=== PATIENT | male | born 1945 | race Caucasian/White ===

== ENCOUNTER 2017-02-06 12:35 | Inpatient (IN) | payer OTHER, MEDICARE ==
[~2017-02-06] VITALS: Ht 180.3 cm; Wt 78.8 kg
[~2017-02-06 12:35] MED LIST: CEPH-460 PO; DEXAMETHASONE SOD PHOS 4 MG/ML VIAL IV ONE; EFFE150C PO; GLYCOPYRROLATE 1 MG/5 ML SYRINGE IV PUSH ONE; LACTATED RINGER'S 1000 ML INJ 1,000 ML IV ONE; LEVO25TA4 PO; LIDOCAINE HCL 1% PF 5 ML AMPULE OTHER ONE; LOVA20TA PO; METR-1 PO; MIDAZOLAM HCL 2 MG/2 ML VIAL IV ONE; MORPHINE SULFATE 4 MG/ML INJ IV ONE; NEOM500 PO; NEOSTIGMINE 3 MG/3 ML SYR IV ONE; NORMOSOL R INJ 1,000 ML IV ONE; ONDANSETRON HCL 4 MG/2 ML VIAL IV PUSH ONE; PHENYLEPH/NS 1000 MCG/10 ML SYR IV ONE; PHENYLEPHRINE HCL 10 MG/ML VIAL IV ONE; PROPOFOL 200 MG/20 ML AMP IV ONE; ROCURONIUM INJ 50 MG/5 ML VIAL IV ONE; STERILE WATER FOR INJECTION 20 ML VIAL IV ONE; SUCCINYLCHOLINE CHLORIDE 100 MG/5 ML SYRINGE IV PUSH ONE; VECURONIUM BROMIDE 20 MG VIAL IV ONE; hydrALAZINE HCL 20 MG/ML VIAL IV ONE
[2017-02-06] MEDS ORDERED: POVIDONE IODINE 5% (ANTISEPSIS KIT) 4 APPLICATIONS EACH NARE PRN (13:00)
[2017-02-06] MEDS ORDERED: CHLORHEXIDINE GLUCONATE 2 % 1 PACK (2 CLOTHS) TOPICAL PRN (13:00)
[2017-02-06] MEDS ORDERED: METRONIDAZOLE 500 MG/100 ML ISONTONIC SOLN IV SCH (13:00)
[2017-02-06] MEDS ORDERED: SODIUM CHLORID 0.9% 500 ML IV PRN (13:00)
[2017-02-06] MEDS ORDERED: LACTATED RINGER'S 1000 ML IV PRN (13:00)
[2017-02-06] MEDS ORDERED: METOPROLOL TARTRATE 25 MG TAB PO PRN (13:00)
[2017-02-06] MEDS ORDERED: ceFAZolin 1,000 MG/NS 100 ML IV SCH ×2 (13:00)
[2017-02-06] MEDS ORDERED: DEXT 5%-NACL 0.9% 1000 ML INJ 1,000 ML IV SCH (13:15)
[2017-02-06] MEDS ORDERED: ALVIMOPAN 12 MG CAPSULE PO SCH (13:15)
[2017-02-06 13:36] LABS: AUTOMATED NEUTROPHIL # 3.7 TH/MM3 (1.8-7.7); BASOPHIL # 0.1 TH/MM3 (0-0.2); BASOPHIL % 1.2 % (0.0-2.0); EOSINOPHIL # 0.1 TH/MM3 (0-0.4); EOSINOPHIL % 2.7 % (0.0-4.0); HEMO FLAGS DIFF FINAL; LYMPH % 14.4 % (9.0-44.0); LYMPHOCYTE # 0.8 TH/MM3 (1.0-4.8); MEAN CELL VOLUME 88.2 FL (80.0-100.0); MEAN CORPUSCULAR HEMOGLOBIN 29.8 PG (27.0-34.0); MEAN CORPUSCULAR HGB CONC 33.8 % (32.0-36.0); MONO % 12.8 % (0.0-8.0); NEUT % 68.9 % (16.0-70.0); PLATELET COUNT 319 TH/MM3 (150-450); RED BLOOD COUNT 4.77 MIL/MM3 (4.50-5.90); RED CELL DISTRIBUTION WIDTH 15.3 % (11.6-17.2); WHITE BLOOD COUNT 5.3 TH/MM3 (4.0-11.0)
[2017-02-06 13:42] LABS: ALT (GPT) 22 U/L (12-78); ANION GAP 9 MEQ/L (5-15); AST (GOT) 17 U/L (15-37); BICARBONATE 26.9 MEQ/L (21.0-32.0); BLOOD UREA NITROGEN 9 MG/DL (7-18); CHLORIDE 104 MEQ/L (98-107); GLOMERULAR FILTRATION RATE 79 ML/MIN (>89); POTASSIUM 3.7 MEQ/L (3.5-5.1); SODIUM (NA) 140 MEQ/L (136-145)
[2017-02-06 13:44] LABS: APTT (PATIENT) 27.8 SEC (24.3-30.1); INTERNATIONAL NORMALIZED RATIO 1.1 RATIO; PROTHROMBIN TIME - PATIENT 12.1 SEC (9.8-11.6)
[2017-02-06 13:45] LABS: ALKALINE PHOSPHATASE 66 U/L (45-117); TOTAL BILIRUBIN ADULT 0.4 MG/DL (0.2-1.0)
[2017-02-06 13:58] LABS: BLOOD, URINE NEG (NEG); COMMENT (UR) CULT NOT INDICATED; CULTURE IF INDICATED CULT NOT INDICATED; GLUCOSE,URINE NEG (NEG); HYALINE CAST, URINE 4 /lpf (RARE); KETONE, URINE 10 mg/dL (NEG); MUCUS URINE FEW /lpf (OCC); NITRITE,URINE NEG (NEG); PH, URINE 5.5 (5.0-8.5)
[2017-02-06 14:00] LABS: URINE COLOR LIGHT-RED (YELLW/STRAW)
--- NOTE | 2017-02-06 14:01 | RADRPT ---
EXAM DATE/TIME: 02/06/2017 13:23 [place] COMPARISON: CHEST SINGLE AP, November 10, 2012, 22:08. INDICATIONS : Evaluate for penumonia, pneumothorax, or communicable disease. Pre op for sigmoid colectomy. MEDICAL HISTORY : Hypercholesterolemia. Osteoarthritis. Colon Abscess.Thyroid disease. Enlarged prostate. SURGICAL HISTORY : Discectomy, cervical. Left knee arthroscopy. ENCOUNTER: Initial ACUITY: 1 day PAIN SCORE: 0/10 LOCATION: chest FINDINGS: Portable AP view of the chest demonstrates a normal-sized cardiac silhouette. No effusion, consolidat ion, or pneumothorax is visualized. The bones and soft tissues demonstrate no acute abnormality. Ther e are degenerative changes of the thoracic spine. CONCLUSION: No acute cardiopulmonary abnormality is identified. Darryl Lambert MD on February 06, 2017 at 13:59 Board Certified Radiologist. This report was verified electronically.
[2017-02-06] MEDS ORDERED: SUGAMMADEX SODIUM 200 MG/2 ML VIAL IV PUSH ONE ×2 (16:07)
[2017-02-06] MEDS ORDERED: ACETAMINOPHEN 1000 MG/100 ML 100 ML IV ONE (16:29)
[2017-02-06] MEDS ORDERED: DO NOT ADM ANY ANTICOAGULANT DRUGS PRN (19:15)
[2017-02-06] MEDS ORDERED: ONDANSETRON HCL 4 MG/2 ML VIAL ONE (19:30)
[2017-02-06] MEDS ORDERED: ZOLPIDEM TARTRATE 5 MG TAB PO PRN (19:30)
[2017-02-06] MEDS ORDERED: *morphine SULFATE 8 MG/ML PERIprocedure ONLY ONE ×3 (19:30→19:55)
[2017-02-06] MEDS ORDERED: SODIUM CHLORIDE 0.9% FLUSH 10 ML FLUSH IV FLUSH PRN ×2 (19:30→19:45)
[2017-02-06] MEDS ORDERED: ENALAPRILAT 1.25 MG/ML VIAL IV PUSH PRN (19:30)
[2017-02-06] MEDS ORDERED: NALOXONE HCL 0.4 MG/ML AMP IV PUSH PRN (19:30)
[2017-02-06] MEDS ORDERED: POTASSIUM CHLOR 40 MEQ PREMIX 100 ML IV PRN ×2 (19:30→19:45)
[2017-02-06] MEDS ORDERED: Post-op Orders (for Pharmacy) MISC XX ONE (19:30)
[2017-02-06] MEDS ORDERED: ONDANSETRON HCL 4 MG/2 ML VIAL IV PUSH PRN (19:30)
[2017-02-06] MEDS ORDERED: BENZOCAINE 6 MG/MENTHOL 10 MG LOZENGE BUCCAL PRN (19:30)
[2017-02-06] MEDS ORDERED: POTASSIUM CHLOR 20 MEQ PREMIX 100 ML IV PRN ×2 (19:30→19:45)
[2017-02-06] MEDS ORDERED: MORPHINE SULFATE 30 MG/30 ML PCA IV SCH (19:30)
[2017-02-06] MEDS: D5-LR + KCL 20 MEQ INJ 1,000 ML IV SCH ×2 (19:52→23:43)
[2017-02-06] MEDS ORDERED: *HYDROmorphone PF 1 MG VIAL PERIprocedural Use ONLY ONE (20:10)
[2017-02-06 20:18] LABS: AUTOMATED NEUTROPHIL # 4.1 TH/MM3 (1.8-7.7); BASOPHIL % 0.8 % (0.0-2.0); EOSINOPHIL % 0.1 % (0.0-4.0); HEMATOCRIT 40.6 % (39.0-51.0); HEMO FLAGS DIFF FINAL; LYMPH % 9.4 % (9.0-44.0); LYMPHOCYTE # 0.5 TH/MM3 (1.0-4.8); MEAN CELL VOLUME 87.5 FL (80.0-100.0); MEAN CORPUSCULAR HGB CONC 33.1 % (32.0-36.0); MONO % 4.9 % (0.0-8.0); NEUT % 84.8 % (16.0-70.0); PLATELET COUNT 309 TH/MM3 (150-450); RED BLOOD COUNT 4.63 MIL/MM3 (4.50-5.90); RED CELL DISTRIBUTION WIDTH 15.1 % (11.6-17.2); WHITE BLOOD COUNT 4.8 TH/MM3 (4.0-11.0)
[2017-02-06] MEDS: FUROSEMIDE 20 MG/2 ML VIAL IV PUSH SCH (20:43)
[2017-02-06] MEDS: KETOROLAC TROMETHAMINE 30 MG/ML (IVP) VIAL IVP PRN (20:53)
[2017-02-06] MEDS ORDERED: SODIUM CHLORIDE 0.9% FLUSH 10 ML FLUSH IV FLUSH SCH (21:00)
[2017-02-06 21:07] LABS: BICARBONATE 23.9 MEQ/L (21.0-32.0); POTASSIUM 3.6 MEQ/L (3.5-5.1)
[2017-02-06 21:29] LABS: CALCIUM-PROTEIN CORRECTED 7.7 MG/DL (8.5-10.1)
[2017-02-06 22:00] VITALS: BP 172/70; PULSE 67; PULSE 73; RESP 14; TEMP 98.1; O2SAT 94
[2017-02-06] MEDS ORDERED: PCA - TOTAL MG MORPHINE DELIVERED PER SHIFT SCH (22:00)
[2017-02-06 23:00] VITALS: PULSE 60
[2017-02-07] VITALS (18 sets, daily range): BP systolic 92–154; BP diastolic 49–68; PULSE 55–99; RESP 14–18; TEMP 98.1–100; O2SAT 92–98
[2017-02-07] MEDS ORDERED: NALOXONE HCL 0.4 MG/ML AMP IV PUSH PRN (00:30)
[2017-02-07] MEDS: HYDROmorphone HCL PCA 6 MG/30 ML IV SCH ×4 (01:29→23:46)
[2017-02-07] MEDS: METOCLOPRAMIDE HCL 10 MG/2 ML VIAL IVS SCH ×4 (01:46→18:36)
[2017-02-07] MEDS: SODIUM CHLORIDE 0.9% FLUSH 10 ML FLUSH IV FLUSH SCH ×3 (01:47→21:07)
[2017-02-07] MEDS: metroNIDAZOLE 500 MG INJ 100 ML IV SCH ×3 (01:57→16:15)
[2017-02-07 04:34] LABS: BASOPHIL % 0.2 % (0.0-2.0); HEMATOCRIT 42.2 % (39.0-51.0); HEMO FLAGS DIFF FINAL; LYMPH % 1.7 % (9.0-44.0); LYMPHOCYTE # 0.2 TH/MM3 (1.0-4.8); MEAN CELL VOLUME 88.4 FL (80.0-100.0); MEAN CORPUSCULAR HEMOGLOBIN 29.1 PG (27.0-34.0); MEAN CORPUSCULAR HGB CONC 32.9 % (32.0-36.0); MONO % 6.1 % (0.0-8.0); PLATELET COUNT 297 TH/MM3 (150-450); RED BLOOD COUNT 4.77 MIL/MM3 (4.50-5.90); RED CELL DISTRIBUTION WIDTH 15.1 % (11.6-17.2); WHITE BLOOD COUNT 9.8 TH/MM3 (4.0-11.0)
[2017-02-07 05:24] LABS: POTASSIUM 4.5 MEQ/L (3.5-5.1)
[2017-02-07 05:41] LABS: CALCIUM-PROTEIN CORRECTED 7.7 MG/DL (8.5-10.1)
[2017-02-07] MEDS: PCA - TOTAL MG DILAUDID DELIVERED PER SHIFT SCH ×3 (06:00→22:15)
[2017-02-07] MEDS: LEVOTHYROXINE SODIUM 25 MCG TAB PO SCH (06:40)
[2017-02-07] MEDS: PRAVASTATIN SOD 20 MG TAB PO SCH (08:55)
[2017-02-07] MEDS: VENLAFAXINE HCL XR 75 MG CAP PO SCH (08:55)
[2017-02-07] MEDS: FUROSEMIDE 20 MG/2 ML VIAL IV PUSH SCH ×2 (08:55→21:07)
[2017-02-07] MEDS: PANTOPRAZOLE SODIUM 40 MG VIAL IVP SCH (08:55)
[2017-02-07] MEDS: ALVIMOPAN 12 MG CAPSULE PO SCH ×2 (08:55→21:07)
[2017-02-07] MEDS: ALVIMOPAN 12 MG CAPSULE - Post-op dosing PO SCH ×2 (08:56→21:00)
--- NOTE | 2017-02-07 10:52 | MP ---
cc: MACKENZIE JARQUIN M.D., JOHN T. M.D. DATE OF SURGERY: 02/06/2017 PREOPERATIVE DIAGNOSIS Diverticulitis with colocutaneous fistula. POSTOPERATIVE DIAGNOSIS Diverticulitis with colocutaneous fistula. PROCEDURE 1. Sigmoid colectomy, low anterior resection. 2. Diverting loop ileostomy. 3. Placement of bilateral ureteral catheters by Dr. Marvin Post. SURGEON Dr. Prieto. AUTOMATIC PINSETTER MECHANIC SURGEON Dr. Simms. ANESTHESIA General endotracheal. OPERATING TIME Two hours. INDICATIONS This patient was found to have diverticulitis about one month ago. He was seen and underwent a CT scan of the abdomen which showed a 3 x 5 cm pericolonic abscess around the sigmoid colon. He saw me several days later and I sent him to the hospital for drainage of this peridiverticular abscess. He did well without drainage and about a week later had a repeat CAT scan which showed no abscess cavity and it appeared to be resolving diverticulitis. He was still on antibiotics and his drainage catheter was removed. Several days later he began having pus draining out of the drainage catheter site and a repeat CT scan showed a recurrent pericolonic abscess. He again underwent CT-guided drainage, however, that drainage catheter fell out because it was not sutured in place. He then was admitted to the hospital for two days and underwent repeat drainage and has had the drainage catheter in, essentially off and on for one month. Since that time he has continued to drain from the drainage catheter liquid fecal material each day without any improvement. The last CT scan done last week showed that there was still a collection around the colon and the sigmoid colon was densely adherent to the posterior wall of the bladder. For this reason resection plans were made. I went over all the possibilities with the patient at that time. Also, we may plans for bilateral ureteral catheters for easy identification of the ureters. OPERATIVE FINDINGS At surgery, exploration of the abdominal cavity revealed that the liver and the small bowel and the colon were all palpably normal. He had a large peridiverticular mass firmly adherent to the back wall of the bladder and Dr. Post placed bilateral ureteral catheters. We are able to dissect this mass free and there was a peridiverticular abscess approximately 2 inches x 2 inches in diameter full of leaves and vegetable matter. This was all removed and the sigmoid colon was subsequently mobilized and resected, and a primary anastomosis was done. A diverting loop ileostomy was done because of the amount of inflammation in the pelvis. OPERATIVE TECHNIQUE The patient was placed on the table in the supine position. After adequate general endotracheal anesthesia the legs were placed in the perineal lithotomy position and the abdomen and perineum were prepped and draped in the usual manner. A transverse infraumbilical skin incision was made, carried down through subcutaneous tissue and the rectus muscles and the peritoneal cavity entered with the above-mentioned findings. Our attention was turned to the sigmoid colon and the peridiverticular abscess. The drainage catheter had been removed just before surgery. The process was dissected off the posterior wall of the bladder after Dr. Post placed by bilateral ureteral catheters. There was a large abscess cavity as mentioned above in the operative findings containing a large amount of vegetable matter. This was all removed and the sigmoid colon was fully from the posterior wall of the bladder. Next, the sigmoid colon, descending colon and splenic flexure were all mobilized as was the transverse colon and the omentum was mobilized from the transverse colon. The lesser sac was entered. The superior hemorrhoidal vessels were doubly clamped, cut and doubly ligated. The lateral pelvic peritoneum was incised bilaterally and the retrorectal space was entered, and the dissection was taken down to the rectum. The mesorectum was divided with electrocautery and clamped, cut and ligated as well. Once the mesorectum was cleared a pursestring stapling device was used on the rectum. Our attention was then turned to the upper sigmoid colon and the sigmoid mesentery was clamped, cut and ligated and the sigmoid was cleared. A pursestring stapling device was used and then the anvil of the 33 Ethicon EEA stapling device was placed in the proximal bowel and the pursestring was tied. Dr. Simms went below and placed the EEA instrument transanally. The distal pursestring was tied, but the bowel appeared slightly thin as if the muscle had split and therefore the rectum was further mobilized inferiorly and cleared and another pursestring was placed. The EEA instrument was replaced and the pursestring was tied and the instrument connected, closed and fired creating the anastomosis. There was no tension on the anastomosis. The blood supply was excellent. Dr. Simms did proctosigmoidoscopy insufflating air into the rectum and saline solution was in the pelvis and no air leaks were identified. The pelvis was irrigated thoroughly with about 4 liters of saline solution and the small bowel was irrigated as well. It should be mentioned that there was a loop of small bowel that was stuck down in this process originally, but it was peeled off without any apparent damage to the bowel, although the bowel was a little bit thickened and firm. Because of the extensive abscess cavity inflammation in the pelvis we decided to do a fully diverting loop ileostomy in the right upper quadrant. The abscess cavity on the back of the bladder was curetted clean and then hemostasis was obtained with electrocautery and Fibrillar patches. Once this was done the omentum was placed in the left colic gutter anterior to the colorectal anastomosis and posterior to the bladder the two. A 10 flat [place] drain was placed in the retrorectal space and brought out through a separate stab wound in the right lower quadrant. A stoma site was made in the right upper quadrant in the rectus muscle. The mesentery of the small bowel for the ileostomy was opened and the distal portion of the small bowel was stapled closed with a TX 30 stapling device and the small bowel was brought out through the previously made stoma site in the right upper quadrant. The bowel was replaced in the abdominal cavity in an facility maintenance manager manner after obtaining hemostasis with electrocautery and ligature. The abdominal incision was closed in layers using double-stranded #1 PDS for the posterior rectus sheath and then the muscle layer was irrigated with a liter of saline solution and the anterior rectus sheath was closed with double-stranded #1 PDS as well. The skin was closed with skin terrell since it was a contaminated case and the subcutaneous tissue was irrigated with a liter of saline solution prior to that. Once I was done the ileostomy was matured forming a 2 cm nipple and a 57 mm appliance was applied. Sponge, needle and instrument counts were reported as correct. Estimated blood loss was 200 cc. Operating time was 2 hours. The patient tolerated the procedure well and left the operating room in good condition. MD MICHELLE Sharma/NEFTALI /8:41 PM /10:26 AM
[2017-02-07] MEDS: D5-LR + KCL 20 MEQ INJ 1,000 ML IV SCH (14:18)
--- NOTE | 2017-02-07 16:52 | PD.WCN.NOT ---
Wound Consult Description: Consult for NEW OSTOMY TEACHING per Dr Prieto Communicated with: Patient and daughter and bedside Patient was sleeping Recommendation: Write down any questions for next meeting on Friday02/10/17 Read [facility] Additional Information: Patient seen on for ostomy assessment and teaching. Ostomy Type: Ileostomy Surgeon: Darryl Prieto MD Date of Surgery: Feb 06, 2017 Complete: Education materials, Other (supplies ordered from [facility]) Educated patient on: Patient was sleeping on and off and waking up in pain and using Dilaudid ASSISTANT TO THE DEAN pump and falling back to sleep again. Most education was given to pt's and daughter at bedside. Additional information Stoma is in the right quadrant of the abdomen with intact appliance and minimal brown stool noted. Stoma is round, red, moist, moderately protruding, measuring 1 3/4". [facility] Feb 07, 2017 16:52
--- NOTE | 2017-02-07 17:58 | HHI.PR ---
Subjective Remarks C/O pain. No N or V now. Just got OOB in chair. Objective Vital Signs Date Time Temp Pulse Resp B/P (MAP) Pulse Ox O2 Delivery O2 Flow Rate FiO2 02/07/17 17:00 90 02/07/17 16:45 16 02/07/17 15:50 89 02/07/17 15:50 100.0 89 18 101/54 (70) 93 02/07/17 15:00 98 02/07/17 14:00 88 02/07/17 14:00 16 02/07/17 13:00 88 02/07/17 12:00 94 02/07/17 11:00 98.8 97 18 92/49 (63) 92 02/07/17 11:00 97 02/07/17 11:00 97 02/07/17 11:00 92 Room Air 02/07/17 10:00 78 02/07/17 09:00 82 02/07/17 08:52 20 02/07/17 08:00 86 02/07/17 08:00 98.2 55 14 112/64 (80) 94 02/07/17 07:00 90 02/07/17 06:00 14 02/07/17 05:30 98.4 55 14 108/60 (76) 94 02/07/17 02:00 80 02/07/17 01:29 16 02/07/17 01:00 64 02/07/17 00:53 98.1 78 14 154/68 (96) 97 02/07/17 00:00 58 02/06/17 23:00 60 02/06/17 22:00 67 02/06/17 22:00 98.1 73 14 172/70 (104) 94 02/06/17 20:45 97.7 86 20 172/72 (105) 97 Nasal Cannula 2 02/06/17 20:30 77 23 169/72 (104) 97 Nasal Cannula 2 02/06/17 20:15 74 17 152/68 (96) 97 Nasal Cannula 2 02/06/17 20:05 16 02/06/17 20:00 74 24 152/67 (95) 97 Nasal Cannula 2 02/06/17 19:45 74 16 153/71 (98) 97 Nasal Cannula 4 02/06/17 19:30 80 20 151/70 (97) 95 Nasal Cannula 4 02/06/17 19:15 97.7 76 20 172/73 (106) 97 Nasal Cannula 4 I/O 02/06/17 02/06/17 02/06/17 02/07/17 02/07/17 02/07/17 07:00 15:00 23:00 07:00 15:00 23:00 Intake Total 4500 ml 414.5 ml Output Total 2110 ml 2425 ml Balance 2390 ml -2010.5 ml Intake Oral 0 ml 10 ml IV Total 1000 ml 404.5 ml Other 3500 ml Output Urine Total 1800 ml 2425 ml Stool Total 0 ml Drainage Total 110 ml Estimated Blood Loss 200 ml Result Diagram: 02/07/17 0429 02/07/17 0429 Objective Remarks VS-S Abd: flat,soft Labs: Ok I&Os: OK Assessment and Plan Assessment and Plan Stable. POD#1 Ureteral cath removed. FLD tomorrow. D/C PATIENT RELATIONS REPRESENTATIVE in Darryl Prieto MD Feb 07, 2017 17:58
--- NOTE | 2017-02-07 18:23 | EKG ---
Date Performed: 02/06/2017 Time Performed: 13:17:17 PTAGE: 71 years EKG: Sinus rhythm NORMAL ECG NO PREVIOUS TRACING DOCTOR: Jamar Vizcarra Interpretating Date/Time 02/07/2017 18:17:16
[2017-02-08] MEDS: METOCLOPRAMIDE HCL 10 MG/2 ML VIAL IVS SCH ×5 (00:04→22:51)
[2017-02-08] MEDS: D5-LR + KCL 20 MEQ INJ 1,000 ML IV SCH ×4 (00:48→19:53)
[2017-02-08 04:36] LABS: BICARBONATE 31.8 MEQ/L (21.0-32.0); POTASSIUM 4.4 MEQ/L (3.5-5.1)
[2017-02-08 04:56] LABS: AUTOMATED NEUTROPHIL # 11.4 TH/MM3 (1.8-7.7); BASOPHIL % 0.2 % (0.0-2.0); HEMATOCRIT 37.3 % (39.0-51.0); HEMO FLAGS DIFF FINAL; LYMPH % 3.9 % (9.0-44.0); LYMPHOCYTE # 0.5 TH/MM3 (1.0-4.8); MEAN CELL VOLUME 89.3 FL (80.0-100.0); MEAN CORPUSCULAR HEMOGLOBIN 29.7 PG (27.0-34.0); MEAN CORPUSCULAR HGB CONC 33.2 % (32.0-36.0); MONO % 9.5 % (0.0-8.0); NEUT % 86.4 % (16.0-70.0); PLATELET COUNT 287 TH/MM3 (150-450); RED BLOOD COUNT 4.17 MIL/MM3 (4.50-5.90); RED CELL DISTRIBUTION WIDTH 15.5 % (11.6-17.2); WHITE BLOOD COUNT 13.2 TH/MM3 (4.0-11.0)
[2017-02-08] MEDS: ACETAMINOPHEN 1000 MG/100 ML 100 ML IV PRN (04:58)
[2017-02-08] MEDS: LEVOTHYROXINE SODIUM 25 MCG TAB PO SCH (04:59)
[2017-02-08 05:04] LABS: CALCIUM-PROTEIN CORRECTED 7.8 MG/DL (8.5-10.1)
[2017-02-08 05:20] VITALS: BP 97/48; PULSE 93; RESP 17; TEMP 98.5; O2SAT 93
[2017-02-08] MEDS: PCA - TOTAL MG DILAUDID DELIVERED PER SHIFT SCH (06:00)
[2017-02-08 08:00] VITALS: BP 111/53; PULSE 82; RESP 17; TEMP 98.2; O2SAT 94
[2017-02-08] MEDS: VENLAFAXINE HCL XR 75 MG CAP PO SCH (08:34)
[2017-02-08] MEDS: PRAVASTATIN SOD 20 MG TAB PO SCH (08:34)
[2017-02-08] MEDS: PANTOPRAZOLE SODIUM 40 MG VIAL IVP SCH (08:34)
[2017-02-08] MEDS: FUROSEMIDE 20 MG/2 ML VIAL IV PUSH SCH ×2 (08:35→19:52)
[2017-02-08] MEDS: SODIUM CHLORIDE 0.9% FLUSH 10 ML FLUSH IV FLUSH SCH ×2 (08:35→19:52)
[2017-02-08] MEDS: ALVIMOPAN 12 MG CAPSULE - Post-op dosing PO SCH (08:40)
[2017-02-08] MEDS: ALVIMOPAN 12 MG CAPSULE PO SCH ×2 (08:43→19:52)
--- NOTE | 2017-02-08 10:23 | HHI.PR ---
Subjective Remarks C/O pain. No N or V now. No BM or flatus Objective Vital Signs Date Time Temp Pulse Resp B/P (MAP) Pulse Ox O2 Delivery O2 Flow Rate FiO2 02/08/17 08:00 98.2 82 17 111/53 (72) 94 02/08/17 08:00 94 Room Air 02/08/17 06:00 16 02/08/17 05:20 98.5 93 17 97/48 (64) 93 02/07/17 23:46 18 02/07/17 23:30 99.2 91 16 108/57 (74) 98 02/07/17 22:15 16 02/07/17 20:15 99.0 99 18 103/58 (73) 93 02/07/17 20:15 93 Room Air 02/07/17 17:00 90 02/07/17 16:45 16 02/07/17 15:50 89 02/07/17 15:50 100.0 89 18 101/54 (70) 93 02/07/17 15:00 98 02/07/17 14:00 88 02/07/17 14:00 16 02/07/17 13:00 88 02/07/17 12:00 94 02/07/17 11:00 98.8 97 18 92/49 (63) 92 02/07/17 11:00 97 02/07/17 11:00 97 02/07/17 11:00 92 Room Air I/O 02/07/17 02/07/17 02/07/17 02/08/17 02/08/17 02/08/17 07:00 15:00 23:00 07:00 15:00 23:00 Intake Total 414.5 ml 1550 ml 720 ml Output Total 2425 ml 850 ml 510 ml Balance -2010.5 ml 700 ml 210 ml Intake Oral 10 ml 50 ml 720 ml IV Total 404.5 ml 1500 ml Output Urine Total 2425 ml 850 ml 500 ml Stool Total 0 ml 0 ml Drainage Total 10 ml Result Diagram: 02/08/1732302/08/17323 Objective Remarks VS-S Abd: flat,soft,wound clean Labs: Ok I&Os: OK Assessment and Plan Assessment and Plan Stable. POD#2 D/C RAG SORTER AND CUTTER. OOB, FLD, Decrease IVs Darryl Prieto MD Feb 08, 2017 10:23
[2017-02-08] MEDS: ACETAMINOPHEN/HYDROcodone 325 MG/5 MG TAB PO PRN ×3 (10:24→22:51)
[2017-02-08] MEDS: KETOROLAC TROMETHAMINE 30 MG/ML (IVP) VIAL IVP PRN ×2 (11:36→18:56)
[2017-02-08 12:00] VITALS: BP 158/70; PULSE 83; RESP 18; TEMP 98.5; O2SAT 94
[2017-02-08 16:00] VITALS: BP 123/64; PULSE 91; RESP 18; TEMP 98.6; O2SAT 94
[2017-02-08 21:30] VITALS: BP 139/71; PULSE 84; RESP 20; TEMP 96.2; O2SAT 95
[2017-02-09] VITALS: BP 151/71; PULSE 99; RESP 18; TEMP 98; O2SAT 93
[2017-02-09] MEDS: ACETAMINOPHEN 1000 MG/100 ML 100 ML IV PRN (02:38)
[2017-02-09] MEDS: KETOROLAC TROMETHAMINE 30 MG/ML (IVP) VIAL IVP PRN ×3 (02:44→17:35)
[2017-02-09] MEDS: ACETAMINOPHEN/HYDROcodone 325 MG/5 MG TAB PO PRN ×4 (02:52→21:13)
[2017-02-09] MEDS: D5-LR + KCL 20 MEQ INJ 1,000 ML IV SCH ×2 (02:57→13:46)
[2017-02-09 05:38] LABS: BICARBONATE 28.7 MEQ/L (21.0-32.0)
[2017-02-09] MEDS: LEVOTHYROXINE SODIUM 25 MCG TAB PO SCH (06:19)
[2017-02-09] MEDS: METOCLOPRAMIDE HCL 10 MG/2 ML VIAL IVS SCH ×4 (06:20→23:55)
[2017-02-09 08:00] VITALS: BP 146/68; PULSE 79; RESP 17; TEMP 96.1; O2SAT 95
[2017-02-09] MEDS: PANTOPRAZOLE SODIUM 40 MG VIAL IVP SCH (08:36)
[2017-02-09] MEDS: FUROSEMIDE 20 MG/2 ML VIAL IV PUSH SCH (08:37)
[2017-02-09] MEDS: ALVIMOPAN 12 MG CAPSULE PO SCH ×2 (08:38→21:13)
[2017-02-09] MEDS: PRAVASTATIN SOD 20 MG TAB PO SCH (08:38)
[2017-02-09] MEDS: SODIUM CHLORIDE 0.9% FLUSH 10 ML FLUSH IV FLUSH SCH ×2 (09:00→21:13)
[2017-02-09 12:00] VITALS: BP 102/56; PULSE 82; RESP 17; TEMP 95.7; O2SAT 96
--- NOTE | 2017-02-09 13:04 | HHI.PR ---
Subjective Remarks Less pain. No N or V . BM yesterday Objective Vital Signs Date Time Temp Pulse Resp B/P (MAP) Pulse Ox O2 Delivery O2 Flow Rate FiO2 02/09/17 12:00 95.7 82 17 102/56 (71) 96 02/09/17 08:00 96.1 79 17 146/68 (94) 95 02/09/17 00:00 98.0 99 18 151/71 (97) 93 02/08/17 21:30 96.2 84 20 139/71 (93) 95 02/08/17 16:00 98.6 91 18 123/64 (83) 94 02/08/17 15:47 18 I/O 02/08/17 02/08/17 02/08/17 02/09/17 02/09/17 02/09/17 07:00 15:00 23:00 07:00 15:00 23:00 Intake Total 720 ml 1440 ml 750 ml Output Total 510 ml 1870 ml 530 ml Balance 210 ml -430 ml 220 ml Intake Oral 720 ml 240 ml IV Total 1200 ml 750 ml Output Urine Total 500 ml 1850 ml 200 ml Stool Total 300 ml Drainage Total 10 ml 20 ml 30 ml Result Diagram: 02/08/17 0324 02/09/17 0435 Objective Remarks VS-S Abd: flat,soft,wound purulent odorous D/C from middle of wound. !0 CM opened with fairly large amount of purulent D/C. Malodorous. Cleaned and packed. Labs: Ok I&Os: OK Assessment and Plan Assessment and Plan Stable. POD#3 Wound packed. I will repack in AM.C&S sent. Started Rocephin. Decrease Darryl Rogers MD Feb 09, 2017 13:04
[2017-02-09] MEDS: VENLAFAXINE HCL XR 75 MG CAP PO SCH (13:45)
[2017-02-09] MEDS: cefTRIAXone INJ 1,000 MG in SODIUM CHLORIDE 0.9% INJ 100 ML IV SCH (13:45)
[2017-02-09 16:00] VITALS: BP 127/59; PULSE 88; RESP 17; TEMP 95.9; O2SAT 95
[2017-02-09 20:00] VITALS: BP 126/59; PULSE 87; RESP 20; TEMP 97.6; O2SAT 94
[2017-02-09] MEDS: diphenhydrAMINE HCL 50 MG CAP PO PRN (23:55)
[2017-02-10] VITALS: BP 146/68; PULSE 88; RESP 20; TEMP 97.8; O2SAT 95
[2017-02-10] MEDS: ACETAMINOPHEN/HYDROcodone 325 MG/5 MG TAB PO PRN ×4 (04:14→18:35)
[2017-02-10] MEDS: METOCLOPRAMIDE HCL 10 MG/2 ML VIAL IVS SCH ×3 (04:15→18:13)
[2017-02-10] MEDS: LEVOTHYROXINE SODIUM 25 MCG TAB PO SCH (04:16)
[2017-02-10 08:00] VITALS: BP 133/73; PULSE 99; RESP 18; TEMP 98.6; O2SAT 94
[2017-02-10] MEDS: PANTOPRAZOLE SODIUM 40 MG VIAL IVP SCH (08:35)
[2017-02-10] MEDS: VENLAFAXINE HCL XR 75 MG CAP PO SCH (08:36)
[2017-02-10] MEDS: PRAVASTATIN SOD 20 MG TAB PO SCH (08:36)
[2017-02-10] MEDS: ALVIMOPAN 12 MG CAPSULE PO SCH ×2 (08:36→20:21)
[2017-02-10] MEDS: SODIUM CHLORIDE 0.9% FLUSH 10 ML FLUSH IV FLUSH SCH ×2 (08:37→20:21)
--- NOTE | 2017-02-10 09:16 | PD.OP ---
Operative Report Date of Surgery: Feb 06, 2017 Preoperative Diagnosis: Diverticulitis with abscess Postoperative Diagnosis: Diverticulitis with abscess Procedure: Cystoscopy with bilateral ureteral catheter placement Anesthesia: SANCHEZ Surgeon: Marvin Post Volunteer Services Supervisor(s): None Resident Surgeon: None Operation and Findings: 71 year-old male with history of diverticulitis who developed an abscess. Patient was scheduled to undergo evacuation of abscess and colectomy by . Request for made for bilateral ureteral catheter placement. Patient was brought to the operating room and placed in the dorsal lithotomy position. He was prepped and draped in usual sterile fashion, received preprocedure antibiotics and general endotracheal tube anesthesia was administered. 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 The left ureteral orifice was identified and a 5 Czech open catheter was inserted into the left ureteral orifice without difficulty. This was repeated on the right side without difficulty. A 16 Czech Donald was then inserted and the catheters were attached to the Donald. The patient tolerated the procedure well. Marvin Post DO Feb 10, 2017 09:16
[2017-02-10 11:40] VITALS: BP 121/67; PULSE 92; RESP 16; TEMP 97.8; O2SAT 93
--- NOTE | 2017-02-10 12:46 | PD.WCN.NOT ---
Wound Consult Description: Consult for NEW OSTOMY TEACHING per Dr Prieto Communicated with: Patient and his at bedside. Patient slept through most of the teaching. Recommendation: Write down any questions for next meeting on Friday02/11/17 @ 10am Practice opening and closing pouch and attaching practice wafer to plastic stoma in kit. Additional Information: Patient seen on [address] [place] [address] for ostomy assessment and teaching. Ostomy Type: Ileostomy Surgeon: Darryl Prieto MD Date of Surgery: Feb 06, 2017 Complete: Education materials, Other (2 more supplies ordered from [facility] for patient to go home with at discharge. ) Educated patient on: How often to change wafer and pouch How to shower with wafer/pouch in place or removed How to obtain supplies with script given at discharge (home health to follow up) Peristomal skin care Measuring stoma for proper appliance size Opening and closing pouch Emptying pouch every 3-4 hours and PRN Additional information Patient seen on [address] [place] [address] for Ostomy assessment and teaching. Patient at bedside for demonstration of previous documentation. Stoma noted to right side abdomen is red, round, moist, moderately protruding, lumen noted to center and 9 o'clock functioning with dark green effluent noted coming from lumen. Wafer is intact with clear transparent tape removed from around edges of wafer. Pouch was emptied of ~100ml by advertising copy writer and left in bathroom for I&O's. Most of education was given to patient who had questions that were answered at this time. We made arrangements for a meeting tomorrow morning on 02/11/17 at 1000 for changing of appliance, with skin care, and further teaching. Fanny Cantu [facility] Feb 10, 2017 12:46
[2017-02-10] MEDS: cefTRIAXone INJ 1,000 MG in SODIUM CHLORIDE 0.9% INJ 100 ML IV SCH (14:38)
[2017-02-10 16:00] VITALS: BP 159/68; PULSE 99; RESP 18; TEMP 97.1; O2SAT 95
[2017-02-10] MEDS: D5-LR + KCL 20 MEQ INJ 1,000 ML IV SCH (18:13)
[2017-02-10 20:00] VITALS: BP 156/74; PULSE 89; RESP 17; TEMP 98.4; O2SAT 94
[2017-02-11] VITALS: BP 144/73; PULSE 91; RESP 18; TEMP 98.1; O2SAT 95
[2017-02-11] MEDS: METOCLOPRAMIDE HCL 10 MG/2 ML VIAL IVS SCH ×3 (01:43→12:51)
[2017-02-11] MEDS: LEVOTHYROXINE SODIUM 25 MCG TAB PO SCH (04:47)
[2017-02-11] MEDS: ACETAMINOPHEN/HYDROcodone 325 MG/5 MG TAB PO PRN ×2 (04:47→19:26)
[2017-02-11 07:27] LABS: AUTOMATED NEUTROPHIL # 9.6 TH/MM3 (1.8-7.7); BASOPHIL % 0.4 % (0.0-2.0); EOSINOPHIL # 0.2 TH/MM3 (0-0.4); EOSINOPHIL % 2.2 % (0.0-4.0); HEMATOCRIT 32.2 % (39.0-51.0); HEMO FLAGS DIFF FINAL; LYMPH % 5.3 % (9.0-44.0); LYMPHOCYTE # 0.6 TH/MM3 (1.0-4.8); MEAN CORPUSCULAR HEMOGLOBIN 29.3 PG (27.0-34.0); MEAN CORPUSCULAR HGB CONC 33.3 % (32.0-36.0); MONO % 7.6 % (0.0-8.0); NEUT % 84.5 % (16.0-70.0); PLATELET COUNT 286 TH/MM3 (150-450); RED BLOOD COUNT 3.66 MIL/MM3 (4.50-5.90); RED CELL DISTRIBUTION WIDTH 15.3 % (11.6-17.2); WHITE BLOOD COUNT 11.4 TH/MM3 (4.0-11.0)
[2017-02-11 07:42] VITALS: BP 142/67; PULSE 85; RESP 18; TEMP 96.9; O2SAT 97
[2017-02-11] MEDS: VENLAFAXINE HCL XR 75 MG CAP PO SCH (08:19)
[2017-02-11] MEDS: ALVIMOPAN 12 MG CAPSULE PO SCH ×2 (08:19→20:27)
[2017-02-11] MEDS: PRAVASTATIN SOD 20 MG TAB PO SCH (08:20)
[2017-02-11] MEDS: SODIUM CHLORIDE 0.9% FLUSH 10 ML FLUSH IV FLUSH SCH ×2 (08:20→20:27)
[2017-02-11] MEDS: PANTOPRAZOLE SODIUM 40 MG VIAL IVP SCH (08:20)
[2017-02-11 12:00] VITALS: BP 155/80; PULSE 85; RESP 16; TEMP 97.7; O2SAT 96
[2017-02-11] MEDS: cefTRIAXone INJ 1,000 MG in SODIUM CHLORIDE 0.9% INJ 100 ML IV SCH (12:54)
--- NOTE | 2017-02-11 13:43 | PD.WCN.NOT ---
Wound Consult Description: Consult for NEW OSTOMY TEACHING per Dr Prieto Communicated with: Patient Patient at bedside Recommendation: Write down any questions for next meeting on Friday02/12/17 Additional Information: Patient seen on for Ostomy assessment, appliance change, and Ostomy teaching Ostomy Type: Ileostomy Surgeon: Darryl Prieto MD Date of Surgery: Feb 06, 2017 Complete: Starter kit (Verbal consent obtained for [facility] starter kit to be sent to patient home ), Education materials, Other (4 more supplies ordered from [facility] for patient to go home with at discharge. ) Educated patient on: Stoma appearance Peristomal skin care Changing the appliance Additional information Patient seen earlier this am on for Ostomy assessment and teaching. Patient was lying in bed upon arrival with BEATRIZ Mckinney and SHRAVAN Marquez at bedside performing lower transverse abdominal dressing change. Education was given to the patient and the patients at bedside as described above. Later during this visit after the dressing change of the lower abd was completed, patient wanted to get up to the chair and during the teaching we decided to go ahead and change the barrier and pouch. Using adhesive removal wipes the patient and filing writer began removing the barrier from the patients lower right side abdomen. The back side of the barrier was inspected for breakdown and noted that it had done so evenly which is expected. The peristomal skin was cleansed using NS and washcloths and noted to be unremarkable. The stoma measured 1 1/4" therefore an appliance in size 2 1/4" was obtained and used. The ileostomy is red, round, moist, moderately protruding, functioning with dark green liquid noted coming from lumen in center of stoma. Mucocutaneous junction is noted with circumferential sutures and otherwise unremarkable. [facility] Cantu [facility] Feb 11, 2017 13:43
--- NOTE | 2017-02-11 14:01 | HHI.FF ---
Face to Face Verification Diagnosis: (1) Ileostomy in place (2) Diverticulitis large intestine (3) Wound infection after surgery (4) Status post partial resection of colon Home Health Nursing Order: Medical education Wound care and dressing changes Nursing assessment with vital signs Instructions: 1. Pt needs Ileostomy teaching and supplies 2. Wet to dry dressing changes BID. Middle of wound and both corners. Have pt stand or sit in shower. Let shower run on wound before each change to wash debris from wound I have seen patient Gurpreet Willson on 02/11/17. My clinical findings support the need for the requested home health care services because: Ltd mobility - disease progression Deconditioned w/ increased weakness Limited ability to care for self Need for psychosocial assistance Impaired cognition/judgement High risk of falls I certify that my clinical findings support that this patient is homebound because: Post-op weakness Unsteady gait/balance Unsafe to leave home unassisted Unable to use public transportation Darryl Prieto MD Feb 11, 2017 14:01
--- NOTE | 2017-02-11 14:05 | HHI.PR ---
Subjective Remarks Less pain. No N or V . BM yesterday. Dressing changed at 10 AM this AM. Instructed to change each shift. D/W Alma yesterday and Faye today Objective Vital Signs Date Time Temp Pulse Resp B/P (MAP) Pulse Ox O2 Delivery O2 Flow Rate FiO2 02/11/17 07:42 96.9 85 18 142/67 (92) 97 02/11/17 00:00 98.1 91 18 144/73 (96) 95 02/10/17 20:30 Nasal Cannula 02/10/17 20:00 98.4 89 17 156/74 (101) 94 02/10/17 16:00 97.1 99 18 159/68 (98) 95 I/O 02/10/17 02/10/17 02/10/17 02/11/17 02/11/17 02/11/17 07:00 15:00 23:00 07:00 15:00 23:00 Intake Total 450 ml 460 ml Output Total 1660 ml 390 ml 1900 ml Balance -1210 ml -390 ml 460 ml -1900 ml Intake Oral 360 ml IV Total 450 ml 100 ml Output Urine Total 1300 ml 100 ml 1500 ml Stool Total 200 ml 200 ml 300 ml Drainage Total 160 ml 90 ml 100 ml # Voids 3 Result Diagram: 02/11/17 0647 02/09/17 0435 Objective Remarks VS-S Abd: flat,soft,wound just redressed this AM. Dressing dry Labs: Ok I&Os: OK Assessment and Plan Assessment and Plan Stable. POD#5 Dressing change 3 times daily D/C drain in AM D/C tomorrow with [facility] for stoma and wound Darryl Prieto MD Feb 11, 2017 14:05
[2017-02-11 15:36] VITALS: BP 147/70; PULSE 91; RESP 16; TEMP 96.6; O2SAT 97
[2017-02-11 20:00] VITALS: BP 173/79; PULSE 89; RESP 18; TEMP 96.3; O2SAT 94
[2017-02-11] MEDS: D5-LR + KCL 20 MEQ INJ 1,000 ML IV SCH (20:28)
[2017-02-12] VITALS: BP 148/72; PULSE 87; RESP 17; TEMP 97; O2SAT 94
[2017-02-12] MEDS: ACETAMINOPHEN/HYDROcodone 325 MG/5 MG TAB PO PRN ×4 (04:47→22:37)
[2017-02-12] MEDS: LEVOTHYROXINE SODIUM 25 MCG TAB PO SCH (04:47)
[2017-02-12 08:00] VITALS: BP 185/78; PULSE 85; RESP 16; TEMP 97; O2SAT 95
--- NOTE | 2017-02-12 09:38 | HHI.FF ---
Face to Face Verification Diagnosis: (1) Ileostomy in place (2) Diverticulitis large intestine (3) Wound infection after surgery (4) Status post partial resection of colon Physical Therapy Order: Evaluate and Treat, Improve ambulation, Strength and gait training Home Health Nursing Order: Medical education Signs/symptoms of disease process Wound care and dressing changes I have seen patient Gurpreet Willson on 02/12/17. My clinical findings support the need for the requested home health care services because: Ltd mobility - disease progression Deconditioned w/ increased weakness Limited ability to care for self Need for psychosocial assistance High risk of falls Infection w/ risk of complications I certify that my clinical findings support that this patient is homebound because: Post-op weakness Unsteady gait/balance Unsafe to leave home unassisted Need for psychosocial assistance Unable to use public transportation Darryl Prieto MD Feb 12, 2017 09:38
--- NOTE | 2017-02-12 09:43 | HHI.PR ---
Subjective Remarks Less pain. No N or V . Remains weak. May need NHP Objective Vital Signs Date Time Temp Pulse Resp B/P (MAP) Pulse Ox O2 Delivery O2 Flow Rate FiO2 02/12/17 08:00 97.0 85 16 185/78 (113) 95 02/12/17 00:00 97.0 87 17 148/72 (97) 94 02/11/17 20:00 96.3 89 18 173/79 (110) 94 02/11/17 15:36 96.6 91 16 147/70 (95) 97 02/11/17 12:00 97.7 85 16 155/80 (105) 96 I/O 02/11/17 02/11/17 02/11/17 02/12/17 02/12/17 02/12/17 07:00 15:00 23:00 07:00 15:00 23:00 Intake Total 480 ml Output Total 1900 ml 330 ml 380 ml Balance -1900 ml 150 ml -380 ml Intake Oral 480 ml Output Urine Total 1500 ml 350 ml Stool Total 300 ml 300 ml Drainage Total 100 ml 30 ml 30 ml # Voids 5 3 Result Diagram: 02/11/17 0647 02/09/17 0435 Objective Remarks VS-S Abd: flat,soft,wound just redressed by me this AM. Labs: Ok I&Os: OK Assessment and Plan Assessment and Plan Stable. POD#6 Dressing change 3 times daily. Shower wound at least once daily D/C'd drain D/C tomorrow with HHC or NHP for stoma and wound and weakness Darryl Preito MD Feb 12, 2017 09:43
[2017-02-12] MEDS: VENLAFAXINE HCL XR 75 MG CAP PO SCH (09:44)
[2017-02-12] MEDS: PRAVASTATIN SOD 20 MG TAB PO SCH (09:44)
[2017-02-12] MEDS: ALVIMOPAN 12 MG CAPSULE PO SCH ×2 (09:44→20:08)
[2017-02-12] MEDS: SODIUM CHLORIDE 0.9% FLUSH 10 ML FLUSH IV FLUSH SCH ×2 (09:45→20:08)
[2017-02-12] MEDS: D5-LR + KCL 20 MEQ INJ 1,000 ML IV SCH (10:00)
[2017-02-12 12:00] VITALS: BP 134/66; PULSE 83; RESP 17; TEMP 97.7; O2SAT 97
--- NOTE | 2017-02-12 14:09 | PD.WCN.NOT ---
Wound Consult Description: Consult for NEW OSTOMY TEACHING per Dr Prieto Communicated with: Patient Patient at bedside Recommendation: Write down any questions for next meeting on 02/13/17 Additional Information: Patient seen earlier today for Ostomy assessment and teaching. Ostomy Type: Ileostomy Surgeon: Darryl Prieto MD Date of Surgery: Feb 06, 2017 Complete: Starter kit ([facility] sent starter kit to patient home with appliances in size 1 3/4"moldable with open ended beige pouch and filter.), Education materials, Rx (left on chart), Other Educated patient on: Emptying pouch of effluent Releasing air from top where the pouch meets the wafer at the flange Additional information Patient seen on for Ostomy assessment of lower right side ileostomy. Pouch is intact without leaks. Patient states that she spoke with Dr Prieto regarding the outer edges of the wafer and report writer was given the go ahead to cover staple line with the appliance with the next wafer/pouch change. Stoma is red, round, moist, moderately protruding with effluent noted coming from lumen noted at center and 7 o'clock. There is ~75ml of dark green liquid noted to pouch that was emptied by report writer and the patient demonstrating how he can open and close the pouch. A new graduate was given to the patient to take home for measurements of output. Patient was assisted out of bed and using his walker he was able to ambulate to the bathroom where he used an electric shaver to groom himself. Discussion took place with patient regarding rehab vs home with home health care. Patient stated that she would not be able to help him with the wound packing dressing changes and was extremely nervous about the stoma and the appliance changes. She has steps written down for how to change the ostomy wafer, including skin care, and what to do in case of skin breakdown. Patient is being sent home with supplies in both the 2 1/4" and the 1 3/4" for when the stoma decreases in size over the next few weeks. All questions were answered regarding the ileostomy, diet, exercise, and fluids. Fanny Cantu [facility] Feb 12, 2017 14:09
[2017-02-12 16:00] VITALS: BP 139/69; PULSE 78; RESP 18; TEMP 98.3; O2SAT 98
[2017-02-12] MEDS: cefTRIAXone INJ 1,000 MG in SODIUM CHLORIDE 0.9% INJ 100 ML IV SCH (16:45)
[2017-02-12 20:00] VITALS: BP 157/74; PULSE 90; RESP 18; TEMP 96.5; O2SAT 97
[2017-02-12] MEDS: diphenhydrAMINE HCL 50 MG CAP PO PRN (22:44)
[2017-02-13] VITALS: BP 157/75; PULSE 82; RESP 18; TEMP 96.7; O2SAT 95
[2017-02-13] MEDS: D5-LR + KCL 20 MEQ INJ 1,000 ML IV SCH ×2 (05:44→21:50)
[2017-02-13] MEDS: LEVOTHYROXINE SODIUM 25 MCG TAB PO SCH (05:47)
[2017-02-13 08:00] VITALS: BP 162/74; PULSE 86; RESP 17; TEMP 96.7; O2SAT 96
[2017-02-13] MEDS: VENLAFAXINE HCL XR 75 MG CAP PO SCH (08:16)
[2017-02-13] MEDS: PRAVASTATIN SOD 20 MG TAB PO SCH (08:16)
[2017-02-13] MEDS: ACETAMINOPHEN/HYDROcodone 325 MG/5 MG TAB PO PRN ×2 (08:16→18:40)
[2017-02-13] MEDS: SODIUM CHLORIDE 0.9% FLUSH 10 ML FLUSH IV FLUSH SCH ×2 (08:17→21:48)
[2017-02-13 08:48] LABS: AUTOMATED NEUTROPHIL # 7.5 TH/MM3 (1.8-7.7); BASOPHIL # 0.1 TH/MM3 (0-0.2); BASOPHIL % 0.5 % (0.0-2.0); EOSINOPHIL # 0.3 TH/MM3 (0-0.4); EOSINOPHIL % 3.5 % (0.0-4.0); HEMATOCRIT 32.7 % (39.0-51.0); HEMO FLAGS DIFF FINAL; LYMPH % 8.9 % (9.0-44.0); LYMPHOCYTE # 0.9 TH/MM3 (1.0-4.8); MEAN CORPUSCULAR HGB CONC 33.3 % (32.0-36.0); MONO % 9.2 % (0.0-8.0); NEUT % 77.9 % (16.0-70.0); PLATELET COUNT 441 TH/MM3 (150-450); RED BLOOD COUNT 3.76 MIL/MM3 (4.50-5.90); RED CELL DISTRIBUTION WIDTH 15.4 % (11.6-17.2); WHITE BLOOD COUNT 9.6 TH/MM3 (4.0-11.0)
[2017-02-13 09:22] LABS: POTASSIUM 3.6 MEQ/L (3.5-5.1)
[2017-02-13 10:03] LABS: BICARBONATE 23.8 MEQ/L (21.0-32.0)
[2017-02-13 12:00] VITALS: BP 133/64; PULSE 79; RESP 17; TEMP 97.8; O2SAT 96
[2017-02-13] MEDS: ALVIMOPAN 12 MG CAPSULE PO SCH ×2 (12:28→21:44)
[2017-02-13] MEDS: cefTRIAXone INJ 1,000 MG in SODIUM CHLORIDE 0.9% INJ 100 ML IV SCH (12:31)
--- NOTE | 2017-02-13 14:21 | PD.WCN.NOT ---
Wound Consult Description: Consult for NEW OSTOMY TEACHING per Dr Prieto Communicated with: Patient Patient at bedside Recommendation: Empty pouch of effluent when 1/3-1/2 full and before bedtime Change appliance every 3-5 days and PRN before leaks occur Additional Information: Patient seen on [address] [place] [address] for Ostomy assessment and teaching Ostomy Type: Ileostomy Surgeon: Darryl Prieto MD Date of Surgery: Feb 06, 2017 Complete: Starter kit ([facility] sent starter kit to patient home with appliances in size 1 3/4"moldable with open ended beige pouch and filter.), Education materials ([facility] box of educational materials regarding surgery, diet, and the me+ support program ), Rx (left on chart), Other Educated patient on: Living with an ileostomy Additional information Patient seen on [address] [place] [address] for Ostomy assessment and reinforcement of ostomy/skin care. Wafer is intact over ileostomy noted to right side abdomen. Pouch was emptied of 150ml of soft thick mushy brown effluent. Stoma is red, round, moist , moderately protruding, functioning through lumen noted in center of stoma. Plans are to change appliance prior to discharge using 2 1/4" wafer Fanny Cantu [facility] Feb 13, 2017 14:20
[2017-02-13 16:00] VITALS: BP 136/68; PULSE 88; RESP 17; TEMP 97.8; O2SAT 95
--- NOTE | 2017-02-13 17:50 | HHI.PR ---
Subjective . Dressing changed by me. Will try D/C tomorrow if HHC and home PT is in place Objective . Abd: wound irrigated and re packed. Assessment/Plan . Stable Probable D/C in AM Darryl Prieto MD Feb 13, 2017 17:50
[2017-02-13 20:00] VITALS: BP 137/66; PULSE 76; RESP 18; TEMP 97.4; O2SAT 96
[2017-02-13] MEDS: diphenhydrAMINE HCL 50 MG CAP PO PRN (21:44)
[2017-02-14] VITALS: BP 161/74; PULSE 72; RESP 18; TEMP 97.3; O2SAT 96
[2017-02-14] MEDS: ACETAMINOPHEN/HYDROcodone 325 MG/5 MG TAB PO PRN (04:47)
[2017-02-14] MEDS: LEVOTHYROXINE SODIUM 25 MCG TAB PO SCH (04:48)
[2017-02-14 08:00] VITALS: BP 136/75; PULSE 74; RESP 18; TEMP 96.6; O2SAT 97
--- NOTE | 2017-02-14 08:13 | HHI.PR ---
Subjective . Pt for D/C today. Needs [facility] nurse for dressing change everyday for at least 1-2 weeks. Face to face done. I will see next Friday or Friday in office Darryl Prieto MD Feb 14, 2017 08:13
[2017-02-14] MEDS ORDERED: INFLUENZA VIRUS VACCINE (QUADRIVALENT) 0.5 ML SYR IM ONE (09:00)
[2017-02-14] MEDS: VENLAFAXINE HCL XR 75 MG CAP PO SCH (09:33)
[2017-02-14] MEDS: PRAVASTATIN SOD 20 MG TAB PO SCH (09:33)
[2017-02-14] MEDS: SODIUM CHLORIDE 0.9% FLUSH 10 ML FLUSH IV FLUSH SCH (09:34)
[2017-02-14 12:00] VITALS: BP 133/64; PULSE 91; RESP 16; TEMP 97.2; O2SAT 97
--- NOTE | 2017-02-14 14:49 | PD.WCN.NOT ---
Wound Consult Description: Consult for NEW OSTOMY TEACHING per Dr Prieto Communicated with: Patient Patient at bedside Recommendation: Empty pouch of effluent when 1/3-1/2 full, before bedtime, and first thing when you wake up Change appliance every 3-5 days and PRN before leaks occur Additional Information: Patient seen on for Ostomy appliance change prior to discharge. Ostomy Type: Ileostomy Surgeon: Darryl Prieto MD Date of Surgery: Feb 06, 2017 Complete: Starter kit ([facility] sent starter kit to patient home with appliances in size 1 3/4"moldable with open ended beige pouch and filter.), Education materials ([facility] box of educational materials regarding surgery, diet, and the me+ support program ), Rx (left on chart), Other ( changed appliance with minimal instruction) Educated patient on: Stoma size Stoma color and function Removing barrier with adhesive removal wipes Assessing back side of wafer Assessing peristomal skin for breakdown Measuring stoma for correct use of appliance Warming barrier prior to application by placing under arm or thigh with plastic still in place Applying barrier to abdomen and then applying closed pouch to barrier Emptying pouch when 1/3- 1/2 full, before bedtime, and first thing in the morning Setting alarm for mid way through the night to check on appliance for air and stool Using resources available for trouble shooting and any questions they may have regarding stoma/peristomal skin care Additional information Patient seen on [place] this am prior to discharge for assistance with appliance change. Patient demonstrated the removal and application of the appliance with minimal instruction. Supplies (Dimple seals, stoma paste, stoma powder, along with Cavilon spray and adhesive removal wipes) were given to patient to go home with and instructions were given on how to use them. Stoma measured 1 1/4" red, round, moist, moderately protruding, lumen noted 6 o'clock with green effluent in pouch that was emptied by patient . Appliance in size 2 1/4" was available and used for wafer change. Patient is going home with a script for appliances in size 1 3/4" for when stoma shrinks and the sutures have dissolved. Fanny Cantu [facility] Feb 14, 2017 14:49
--- NOTE | 2017-02-18 21:10 | MD ---
cc: MACKENZIE JARQUIN M.D., JOHN T. MD ADMISSION DATE: 02/06/2017 DISCHARGE DATE: 02/14/2017 ADMISSION DIAGNOSIS Sigmoid diverticulitis with colocutaneous fistula. DISCHARGE DIAGNOSIS 1. Sigmoid diverticulitis with colocutaneous fistula 2. Postoperative subcutaneous wound infection. OPERATIVE PROCEDURE 02/06/2017 1. Sigmoid colectomy low anterior resection with diverting loop ileostomy 2. Placement of bilateral ureteral catheters by Dr. Marvin Post HISTORY This patient was found to have diverticulitis about a month prior to this admission. He was seen and underwent CT scan of the abdomen which showed a 3 x 5 cm pericolonic abscess around the sigmoid colon. He saw me several days later and I sent him to the hospital for drainage of this severiano-diverticular abscess because he was still having a fair amount of discomfort. He did well with the drainage and, about a week after, had a repeat CAT scan which showed no abscess cavity and appeared as if the diverticulitis was resolving and the drain tube was removed. He was still on antibiotics at that time. Several days later, he began having pus draining from the drainage catheter site and a repeat CT scan showed a recurrent pericolonic abscess. He again underwent CT-guided drainage, however, that drainage catheter fell out because it was not sutured in place. He was then readmitted to the hospital for 2 days and underwent repeat drainage and this drainage catheter has been in since that time, essentially has continued to drain from the drainage catheter liquid fecal material each day without any improvement. The last CT scan done about a week ago prior to this admission still showed a collection around the colon and the sigmoid colon was densely adhered to the posterior wall of the bladder. For this reason, resection plans were made. LABORATORY DATA Pathology report on the removed specimen showed a sigmoid colon acute diverticulitis with features of perforation. HOSPITAL COURSE The patient was admitted to the hospital 02/06/2017 and underwent sigmoid colectomy. At that time, an intra-abdominal pericolonic abscess was found with a lot of vegetable debris in the cavity which was cleaned out. He underwent resection and primary anastomosis, but because of the abscess cavity and his mild debilitation over this month of drainage we decided to do a diverting loop ileostomy. Postoperatively, he did well and on the first postoperative day he was started on a clear liquid diet. He complained of severe pain, but we got him up out of bed sitting in a chair on the first postoperative day. On the second postoperative day, he still continued to complain of pain. He had no nausea, no vomiting. No BMs or flatus from his ileostomy. He was started on a full liquid diet. On the third postoperative day, he had less pain but he had odorous purulent discharge from the mid portion of his wound and the mid portion of his wound was opened of skin terrell and purulent material was drained. The corners of the wound were also opened and the wound was flushed and packed with 4x4 gauzes. Wound culture showed multiple enteric bacteria such as Morganella Enterobacter and Enterococcus. He continued to do well but was quite weak and his dressings were changed at least once or twice a day by myself or the nurses. His wounds were showered and he was packed at least once or twice a day as mentioned. He continued to improve, but was still quite weak and was considering going to a senior care, but over the last 2 days prior to discharge he became more strong and he was discharged on 02/14/2017 in stable condition. He was discharged with home health nursing for daily dressing changes at least for 1-2 weeks. He was scheduled to follow up with me in the office on February 19, 2017 five days after discharged from hospital. MD MICHELLE Sharma/ /6:24 PM /9:05 PM
== END 2017-02-14 13:57 | disposition home health service (06) | DRG 330 ==
LOC: HSDI 12:35 → HCPC 21:15 → N07B 02-08 18:04
PROVIDERS: ADMIT Colon & Rectal Surgery; ATTEND Colon & Rectal Surgery
PROC: 0DJD8ZZ Inspection of Lower Intestinal Tract, Via Natural or Artificial Opening Endoscopic (ICD-10-PCS; 2017-02-06)
PROC: 0T9B80Z Drainage of Bladder with Drainage Device, Via Natural or Artificial Opening Endoscopic (ICD-10-PCS; 2017-02-06)
PROC: 0DTN0ZZ Resection of Sigmoid Colon, Open Approach (ICD-10-PCS; principal; 2017-02-06 16:15)
PROC: 0D1B0Z4 Bypass Ileum to Cutaneous, Open Approach (ICD-10-PCS; 2017-02-06 16:15)
DX: K57.20 Diverticulitis of large intestine with perforation and abscess without bleeding (principal); K63.2 Fistula of intestine; I10 Essential (primary) hypertension; G47.30 Sleep apnea, unspecified; E78.5 Hyperlipidemia, unspecified; H91.90 Unspecified hearing loss, unspecified ear; F32.9 Major depressive disorder, single episode, unspecified; Z98.1 Arthrodesis status
CPT/HCPCS: 71010; 80048; 80053; 81001; 84155; 85025; 85610; 85730; 86850; 86900; 86901; 87070; 87077; 87186; 87205; 88307; 93005; 94150; C1769; C9113; J0131; J0330; J0360; J0690; J0696; J1100; J1170; J1885; J1940; J2250; J2270; J2370; J2405; J2710; J2765; J3010; J3480; J7120; Q0163

== ENCOUNTER → 2017-05-01 | Outpatient (CLI) | payer MEDICARE ==
[~2017-05-01] MED LIST changes: +BENA25CA4 PO; +CARB25TA16 PO; -CEPH-460 PO; +CETI10 PO; -DEXAMETHASONE SOD PHOS 4 MG/ML VIAL IV ONE; -GLYCOPYRROLATE 1 MG/5 ML SYRINGE IV PUSH ONE; -LACTATED RINGER'S 1000 ML INJ 1,000 ML IV ONE; -LIDOCAINE HCL 1% PF 5 ML AMPULE OTHER ONE; -METR-1 PO; -MIDAZOLAM HCL 2 MG/2 ML VIAL IV ONE; -MORPHINE SULFATE 4 MG/ML INJ IV ONE; -NEOM500 PO; -NEOSTIGMINE 3 MG/3 ML SYR IV ONE; -NORMOSOL R INJ 1,000 ML IV ONE; -ONDANSETRON HCL 4 MG/2 ML VIAL IV PUSH ONE; -PHENYLEPH/NS 1000 MCG/10 ML SYR IV ONE; -PHENYLEPHRINE HCL 10 MG/ML VIAL IV ONE; -PROPOFOL 200 MG/20 ML AMP IV ONE; +RIVA1DIS T-DERMAL; -ROCURONIUM INJ 50 MG/5 ML VIAL IV ONE; -STERILE WATER FOR INJECTION 20 ML VIAL IV ONE; -SUCCINYLCHOLINE CHLORIDE 100 MG/5 ML SYRINGE IV PUSH ONE; -VECURONIUM BROMIDE 20 MG VIAL IV ONE; -hydrALAZINE HCL 20 MG/ML VIAL IV ONE
[2017-05-01 10:16] LABS: AUTOMATED NEUTROPHIL # 3.8 TH/MM3 (1.8-7.7); BASOPHIL # 0.1 TH/MM3 (0-0.2); BASOPHIL % 1.3 % (0.0-2.0); EOSINOPHIL # 0.2 TH/MM3 (0-0.4); EOSINOPHIL % 4.1 % (0.0-4.0); HEMATOCRIT 42.9 % (39.0-51.0); HEMOGLOBIN 14.6 GM/DL (13.0-17.0); LYMPH % 17.3 % (9.0-44.0); MEAN CELL VOLUME 87.5 FL (80.0-100.0); MEAN CORPUSCULAR HEMOGLOBIN 29.7 PG (27.0-34.0); MEAN PLATELET VOLUME 7.3 FL (7.0-11.0); MONO % 9.7 % (0.0-8.0); MONOCYTE # 0.5 TH/MM3 (0-0.9); NEUT % 67.6 % (16.0-70.0); PLATELET COUNT 283 TH/MM3 (150-450); RED CELL DISTRIBUTION WIDTH 15.7 % (11.6-17.2); WHITE BLOOD COUNT 5.6 TH/MM3 (4.0-11.0)
[2017-05-01 10:26] LABS: PROTHROMBIN TIME - PATIENT 10.4 SEC (9.8-11.6)
[2017-05-01 10:27] LABS: BILIRUBIN, URINE NEG (NEG); BLOOD, URINE NEG (NEG); GLUCOSE,URINE NEG (NEG); HYALINE CAST, URINE 1 /lpf (RARE); KETONE, URINE NEG (NEG); MUCUS URINE FEW /lpf (OCC); NITRITE,URINE NEG (NEG); URINE COLOR YELLOW (YELLW/STRAW); URINE LEUKOCYTE ESTERASE NEG (NEG)
[2017-05-01 10:38] LABS: ALBUMIN 3.9 GM/DL (3.4-5.0); AST (GOT) 17 U/L (15-37); BICARBONATE 28.3 MEQ/L (21.0-32.0); BLOOD UREA NITROGEN 18 MG/DL (7-18); CALCIUM 8.9 MG/DL (8.5-10.1); CHLORIDE 106 MEQ/L (98-107); CREATININE 0.91 MG/DL (0.60-1.30); GLOMERULAR FILTRATION RATE 82 ML/MIN (>89); GLUCOSE,FASTING 91 MG/DL (74-99); SODIUM (NA) 141 MEQ/L (136-145)
[2017-05-01 10:43] LABS: ALKALINE PHOSPHATASE 82 U/L (45-117); ALT (GPT) 17 U/L (12-78); TOTAL BILIRUBIN ADULT 0.2 MG/DL (0.2-1.0); TOTAL PROTEIN 7.8 GM/DL (6.4-8.2)
== END ==
LOC: CPRE 07:41
PROVIDERS: ATTEND Colon & Rectal Surgery
DX: Z01.812 Encounter for preprocedural laboratory examination (principal); K94.19 Other complications of enterostomy; Z79.01 Long term (current) use of anticoagulants
CPT/HCPCS: 36415; 80053; 81001; 85025; 85610; 85730

== ENCOUNTER 2017-05-08 12:33 | Inpatient (IN) | payer MEDICARE ==
[~2017-05-08] VITALS: Ht 180.3 cm; Wt 81.0 kg
[~2017-05-08 12:33] MED LIST changes: +DEXAMETHASONE SOD PHOS 4 MG/ML VIAL IV ONE; +GLYCOPYRROLATE 1 MG/5 ML SYRINGE IV PUSH ONE; +LABETALOL HCL 100 MG/20 ML VIAL IV ONE; +LACTATED RINGER'S 1000 ML INJ 1,000 ML IV ONE; +LIDOCAINE HCL 1% PF 5 ML SYRINGE OTHER ONE; +NEOSTIGMINE 5 MG/5 ML SYRINGE IV PUSH ONE; +ONDANSETRON HCL 4 MG/2 ML VIAL IV ONE; +PHENYLEPH/NS 1000 MCG/10 ML SYR IV ONE; +PROPOFOL 200 MG/20 ML AMP IV ONE; +ROCURONIUM INJ 50 MG/5 ML SYRINGE IV PUSH ONE; +hydrALAZINE HCL 20 MG/ML VIAL IV ONE
[2017-05-08] MEDS ORDERED: DEXT 5%-NACL 0.9% 1000 ML INJ 1,000 ML IV SCH (13:45)
[2017-05-08] MEDS ORDERED: ALVIMOPAN 12 MG CAPSULE - On Call PO SCH (13:45)
[2017-05-08] MEDS ORDERED: SODIUM CHLORID 0.9% 500 ML IV PRN (13:45)
[2017-05-08] MEDS ORDERED: CHLORHEXIDINE GLUCONATE 2 % 1 PACK (2 CLOTHS) TOPICAL PRN (13:45)
[2017-05-08] MEDS ORDERED: INSULIN HUMAN REGULAR 1,000 UNITS/10 ML VIAL SQ PRN (13:45)
[2017-05-08] MEDS ORDERED: POVIDONE IODINE 5% (ANTISEPSIS KIT) 4 APPLICATIONS EACH NARE PRN (13:45)
[2017-05-08] MEDS ORDERED: ceFAZolin 1,000 MG/NS 100 ML IV SCH ×2 (13:45)
[2017-05-08] MEDS ORDERED: METOPROLOL TARTRATE 25 MG TAB PO PRN (13:45)
[2017-05-08] MEDS ORDERED: METRONIDAZOLE 500 MG/100 ML ISONTONIC SOLN IV SCH (13:45)
[2017-05-08] MEDS ORDERED: LACTATED RINGER'S 1000 ML IV PRN (13:45)
[2017-05-08] MEDS: D5-LR + KCL 20 MEQ INJ 1,000 ML IV SCH (16:00)
[2017-05-08] MEDS ORDERED: ENALAPRILAT 1.25 MG/ML VIAL IV PUSH PRN (16:30)
[2017-05-08] MEDS ORDERED: KETOROLAC TROMETHAMINE 30 MG/ML (IVP) VIAL IVP PRN (16:30)
[2017-05-08] MEDS ORDERED: DO NOT ADM ANY ANTICOAGULANT DRUGS PRN (16:35)
[2017-05-08] MEDS ORDERED: MIDAZOLAM HCL 2 MG/2 ML VIAL ONE (16:46)
[2017-05-08] MEDS ORDERED: GLYCOPYRROLATE 0.2 MG/ML VIAL ONE (16:52)
[2017-05-08] MEDS ORDERED: *morphine SULFATE 4 MG/ML PERIprocedure ONLY ONE ×2 (16:55→17:08)
[2017-05-08 17:08] LABS: BASOPHIL # 0.1 TH/MM3 (0-0.2); BASOPHIL % 0.8 % (0.0-2.0); EOSINOPHIL # 0.2 TH/MM3 (0-0.4); EOSINOPHIL % 1.6 % (0.0-4.0); HEMATOCRIT 43.2 % (39.0-51.0); HEMOGLOBIN 14.5 GM/DL (13.0-17.0); LYMPH % 12.8 % (9.0-44.0); LYMPHOCYTE # 1.4 TH/MM3 (1.0-4.8); MEAN CELL VOLUME 87.6 FL (80.0-100.0); MEAN CORPUSCULAR HEMOGLOBIN 29.4 PG (27.0-34.0); MEAN CORPUSCULAR HGB CONC 33.5 % (32.0-36.0); MEAN PLATELET VOLUME 6.8 FL (7.0-11.0); MONOCYTE # 0.6 TH/MM3 (0-0.9); NEUT % 79.8 % (16.0-70.0); PLATELET COUNT 276 TH/MM3 (150-450); RED BLOOD COUNT 4.93 MIL/MM3 (4.50-5.90); RED CELL DISTRIBUTION WIDTH 15.3 % (11.6-17.2); WHITE BLOOD COUNT 11.3 TH/MM3 (4.0-11.0)
[2017-05-08] MEDS ORDERED: GLYCOPYRROLATE 0.2 MG/ML VIAL IV ONE (17:15)
[2017-05-08] MEDS ORDERED: *morphine SULFATE 10 MG/ML PERIprocedure ONLY ONE (17:19)
[2017-05-08 17:26] LABS: CALCIUM 8.8 MG/DL (8.5-10.1); CREATININE 1.08 MG/DL (0.60-1.30)
[2017-05-08] MEDS ORDERED: MORPHINE SULFATE 30 MG/30 ML PCA IV SCH (18:00)
[2017-05-08] MEDS ORDERED: NALOXONE HCL 0.4 MG/ML AMP IV PUSH PRN (18:15)
[2017-05-08] MEDS ORDERED: BENZOCAINE 6 MG/MENTHOL 10 MG LOZENGE BUCCAL PRN (18:15)
[2017-05-08] MEDS ORDERED: SODIUM CHLORIDE 0.9% FLUSH 10 ML FLUSH IV FLUSH PRN (18:15)
[2017-05-08] MEDS ORDERED: ACETAMINOPHEN/HYDROcodone 325 MG/5 MG TAB PO PRN (18:30)
[2017-05-08 19:00] VITALS: PULSE 82
[2017-05-08] MEDS ORDERED: Post-op Orders (for Pharmacy) XX ONE (19:00)
[2017-05-08] MEDS ORDERED: POTASSIUM CHLOR 40 MEQ PREMIX 100 ML IV PRN (19:00)
[2017-05-08] MEDS ORDERED: POTASSIUM CHLOR 20 MEQ PREMIX 100 ML IV PRN (19:00)
[2017-05-08 20:00] VITALS: BP 150/66; PULSE 78; PULSE 84; RESP 16; TEMP 97.6; O2SAT 92
[2017-05-08 20:58] VITALS: O2SAT 97
[2017-05-08 21:00] VITALS: PULSE 74
[2017-05-08] MEDS ORDERED: CARBIDOPA LEVODOPA PO SCH (21:00)
[2017-05-08] MEDS ORDERED: ZOLPIDEM TARTRATE 5 MG TAB PO PRN (21:00)
[2017-05-08] MEDS ORDERED: diphenhydrAMINE HCL 50 MG/ML VIAL IV PUSH PRN (21:15)
[2017-05-08] MEDS: SODIUM CHLORIDE 0.9% FLUSH 10 ML FLUSH IV FLUSH SCH (21:42)
[2017-05-08 22:00] VITALS: PULSE 68
[2017-05-08] MEDS: PCA - TOTAL MG MORPHINE DELIVERED PER SHIFT SCH (22:00)
[2017-05-08 23:00] VITALS: BP 143/63; PULSE 82; PULSE 90; RESP 16; TEMP 97.6; O2SAT 93
[2017-05-09] VITALS (22 sets, daily range): BP systolic 120–160; BP diastolic 58–68; PULSE 63–90; RESP 16–18; TEMP 97.2–98.4; O2SAT 93–95
[2017-05-09] MEDS: metroNIDAZOLE 500 MG INJ 100 ML IV SCH ×3 (00:26→16:41)
[2017-05-09] MEDS: METOCLOPRAMIDE HCL 10 MG/2 ML VIAL IVS SCH ×6 (00:26→22:54)
[2017-05-09] MEDS: D5-LR + KCL 20 MEQ INJ 1,000 ML IV SCH ×4 (01:10→23:02)
[2017-05-09 06:00] LABS: AUTOMATED NEUTROPHIL # 8.5 TH/MM3 (1.8-7.7); BASOPHIL % 0.2 % (0.0-2.0); EOSINOPHIL % 0.1 % (0.0-4.0); HEMATOCRIT 39.6 % (39.0-51.0); HEMOGLOBIN 13.5 GM/DL (13.0-17.0); LYMPHOCYTE # 0.6 TH/MM3 (1.0-4.8); MEAN CELL VOLUME 86.2 FL (80.0-100.0); MEAN CORPUSCULAR HEMOGLOBIN 29.3 PG (27.0-34.0); MEAN CORPUSCULAR HGB CONC 34.1 % (32.0-36.0); MEAN PLATELET VOLUME 6.9 FL (7.0-11.0); MONO % 8.2 % (0.0-8.0); MONOCYTE # 0.8 TH/MM3 (0-0.9); NEUT % 85.5 % (16.0-70.0); PLATELET COUNT 283 TH/MM3 (150-450); RED BLOOD COUNT 4.59 MIL/MM3 (4.50-5.90); RED CELL DISTRIBUTION WIDTH 15.2 % (11.6-17.2); WHITE BLOOD COUNT 9.9 TH/MM3 (4.0-11.0)
[2017-05-09] MEDS: PCA - TOTAL MG MORPHINE DELIVERED PER SHIFT SCH ×2 (06:00→13:47)
[2017-05-09] MEDS: LEVOTHYROXINE SODIUM 25 MCG TAB PO SCH (06:00)
[2017-05-09 06:21] LABS: BICARBONATE 26.8 MEQ/L (21.0-32.0); CALCIUM 8.2 MG/DL (8.5-10.1); CREATININE 0.82 MG/DL (0.60-1.30)
[2017-05-09] MEDS: CARBIDOPA PO SCH ×2 (09:00→21:00)
[2017-05-09] MEDS ORDERED: ALVIMOPAN 12 MG CAPSULE - Post-op dosing PO SCH (09:00)
[2017-05-09] MEDS: LEVODOPA PO SCH ×2 (09:00→21:00)
[2017-05-09] MEDS: VENLAFAXINE HCL XR 75 MG CAP PO SCH (09:51)
[2017-05-09] MEDS: PRAVASTATIN SOD 20 MG TAB PO SCH (09:51)
[2017-05-09] MEDS: PANTOPRAZOLE SODIUM 40 MG VIAL IVP SCH (09:51)
[2017-05-09] MEDS: RIVASTIGMINE 4.6 MG/24 HOUR PATCH T-DERMAL SCH (09:51)
[2017-05-09] MEDS: CETIRIZINE HCL 10 MG TAB PO SCH (09:52)
[2017-05-09] MEDS: SODIUM CHLORIDE 0.9% FLUSH 10 ML FLUSH IV FLUSH SCH ×2 (09:52→21:00)
--- NOTE | 2017-05-09 14:03 | HHI.PR ---
Subjective Remarks No N or V. No BMs yet. Ambulating well Objective Vital Signs Date Time Temp Pulse Resp B/P (MAP) Pulse Ox O2 Delivery O2 Flow Rate FiO2 05/09/17 13:47 18 05/09/17 13:00 72 05/09/17 12:00 70 05/09/17 11:23 97.5 70 18 129/61 (83) 94 05/09/17 11:22 94 Nasal Cannula 2.00 05/09/17 11:00 68 05/09/17 10:00 71 05/09/17 09:00 75 05/09/17 08:00 68 05/09/17 07:23 98.2 69 16 122/58 (79) 94 05/09/17 07:00 63 05/09/17 06:54 98.3 90 16 120/58 (78) 94 05/09/17 06:00 70 05/09/17 06:00 16 05/09/17 05:00 72 05/09/17 04:00 80 05/09/17 03:00 77 05/09/17 02:00 74 05/09/17 00:00 79 05/08/17 23:00 82 05/08/17 23:00 97.6 90 16 143/63 (89) 93 05/08/17 22:00 68 05/08/17 22:00 16 05/08/17 21:00 74 05/08/17 20:58 97 Nasal Cannula 2.00 05/08/17 20:00 84 05/08/17 20:00 97.6 78 16 150/66 (94) 92 05/08/17 19:00 82 05/08/17 18:30 97.6 70 17 149/67 (94) 98 Nasal Cannula 2 05/08/17 18:18 24 05/08/17 18:15 72 21 166/72 (103) 97 Nasal Cannula 2 05/08/17 18:00 63 14 162/68 (99) 99 Nasal Cannula 2 05/08/17 17:45 69 14 140/65 (90) 98 Nasal Cannula 2 05/08/17 17:30 71 14 145/66 (92) 99 Nasal Cannula 2 05/08/17 17:15 80 12 158/55 (89) 99 Nasal Cannula 2 05/08/17 17:00 92 18 173/75 (107) 98 Nasal Cannula 4 05/08/17 16:45 79 18 174/70 (104) 98 Nasal Cannula 4 05/08/17 16:35 71 20 189/78 (115) 96 Nasal Cannula 4 05/08/17 16:30 71 24 190/77 (114) 96 Nasal Cannula 4 05/08/17 16:27 97.7 75 17 208/86 (126) 95 Nasal Cannula 4 I/O 05/08/17 05/08/17 05/08/17 05/09/17 05/09/17 05/09/17 07:00 15:00 23:00 07:00 15:00 23:00 Intake Total 1000 ml 100 ml Output Total 25 ml 1950 ml Balance 975 ml -1850 ml Intake Oral 0 ml 100 ml IV Total 1000 ml Output Urine Total 0 ml 1950 ml Estimated Blood Loss 25 ml Result Diagram: 05/09/1744105/09/17441 Objective Remarks VS-S Abd: flat,dressing dry I&Os and Labs-OK Assessment and Plan Assessment and Plan Stable POD#1 Advance diet and possible D/C tomorrow. OV for f/u 05/15/17 Darryl Prieto MD May 09, 2017 14:03
[2017-05-09] MEDS: ACETAMINOPHEN/HYDROcodone 325 MG/5 MG TAB PO PRN (19:21)
[2017-05-09] MEDS: ALVIMOPAN 12 MG CAPSULE PO SCH (22:55)
[2017-05-10 03:00] VITALS: BP 159/74; PULSE 79; RESP 16; TEMP 97.7; O2SAT 93
[2017-05-10 04:54] LABS: AUTOMATED NEUTROPHIL # 7.3 TH/MM3 (1.8-7.7); BASOPHIL % 0.4 % (0.0-2.0); EOSINOPHIL # 0.1 TH/MM3 (0-0.4); EOSINOPHIL % 0.6 % (0.0-4.0); HEMOGLOBIN 13.3 GM/DL (13.0-17.0); LYMPH % 5.8 % (9.0-44.0); LYMPHOCYTE # 0.5 TH/MM3 (1.0-4.8); MEAN CORPUSCULAR HEMOGLOBIN 29.2 PG (27.0-34.0); MEAN PLATELET VOLUME 6.8 FL (7.0-11.0); MONOCYTE # 0.8 TH/MM3 (0-0.9); NEUT % 84.2 % (16.0-70.0); PLATELET COUNT 238 TH/MM3 (150-450); RED BLOOD COUNT 4.54 MIL/MM3 (4.50-5.90); RED CELL DISTRIBUTION WIDTH 15.1 % (11.6-17.2); WHITE BLOOD COUNT 8.7 TH/MM3 (4.0-11.0)
[2017-05-10 05:13] LABS: BICARBONATE 30.5 MEQ/L (21.0-32.0); CALCIUM 8.2 MG/DL (8.5-10.1); CREATININE 0.83 MG/DL (0.60-1.30)
[2017-05-10] MEDS: METOCLOPRAMIDE HCL 10 MG/2 ML VIAL IVS SCH (06:00)
[2017-05-10] MEDS: LEVOTHYROXINE SODIUM 25 MCG TAB PO SCH (06:02)
[2017-05-10 07:00] VITALS: BP 140/72; PULSE 79; RESP 16; TEMP 97.5; O2SAT 94
[2017-05-10] MEDS: PRAVASTATIN SOD 20 MG TAB PO SCH (08:54)
[2017-05-10] MEDS: RIVASTIGMINE 4.6 MG/24 HOUR PATCH T-DERMAL SCH (08:54)
[2017-05-10] MEDS: CETIRIZINE HCL 10 MG TAB PO SCH (08:54)
[2017-05-10] MEDS: VENLAFAXINE HCL XR 75 MG CAP PO SCH (08:55)
[2017-05-10] MEDS: ALVIMOPAN 12 MG CAPSULE PO SCH (08:55)
[2017-05-10] MEDS: PANTOPRAZOLE SODIUM 40 MG VIAL IVP SCH (08:55)
[2017-05-10] MEDS: SODIUM CHLORIDE 0.9% FLUSH 10 ML FLUSH IV FLUSH SCH (08:55)
[2017-05-10] MEDS: LEVODOPA PO SCH (09:00)
[2017-05-10] MEDS: CARBIDOPA PO SCH (09:00)
[2017-05-10] MEDS ORDERED: INFLUENZA VIRUS VACCINE (QUADRIVALENT) 0.5 ML SYR IM ONE (09:00)
[2017-05-10] MEDS ORDERED: HYDR-3516 PO (10:01)
[2017-05-10] MEDS ORDERED: METOCLOPRAMIDE HCL 10 MG/2 ML VIAL IVS PRN (10:15)
--- NOTE | 2017-05-10 10:52 | MP ---
cc: MD JALEN,Germain CHELO DATE OF SURGERY: 05/08/2017. PREOPERATIVE DIAGNOSIS: Diverting loop ileostomy. POSTOPERATIVE DIAGNOSIS Diverting loop ileostomy. OPERATIVE PROCEDURE PERFORMED: Small bowel resection with closure of ileostomy. SURGEON: Darryl Prieto M.D. BOX SHOOK PATCHER: Musa Simms MD. ANESTHESIA: General endotracheal anesthesia. ESTIMATED BLOOD LOSS: Minimal. OPERATIVE FINDINGS: This patient had a diverting loop ileostomy done three or four months ago at the time of his sigmoid colectomy for a perforated diverticulitis. At that time, he had resection with anastomosis and removal of a CT-guided drain. Postoperatively he did well and had a diverting loop ileostomy. However, he did develop a wound infection which is nearly closed at this time. The minimal portion of the wound is a couple of millimeters in the middle portion but otherwise the wound is clean and closed up. For this reason closure of his ileostomy was done. At surgery the small bowel was mobilized up out of the abdominal cavity and the small bowel was resected above and below the stoma and then anastomosis was done a reconnecting the small bowel. OPERATIVE TECHNIQUE: The patient was placed on the table in the supine position. After adequate general endotracheal anesthesia, the abdomen was prepped and draped in the usual manner after suturing the mucosa closed of the ileostomy. A vertical elliptical incision was made in the skin and subcutaneous tissue and then the ileostomy was mobilized around to the fascial level and then intraperitoneally and then the proximal and distal ileum easily prolapsed out from the abdominal cavity. A point was chosen proximally and distally to the stoma and the proximal small bowel was cleared of its mesentery and divided with an Ethicon SEVEN 55 stapling device and then the distal bowel was cleared of its mesentery and divided between Porfirio clamps. The remainder of the mesentery was then clamped, cut and ligated and the stoma and small bowel proximal and distal was removed from the field. Anastomosis was done along the antimesenteric border of the small bowel using Ethicon SEVEN 55 stapling device and the enterotomy was closed with a TX 60 blue staple height stapling device. The anastomosis was excellent. The blood supply was excellent. There is no tension on the anastomosis. The mesentery was approximated with running 3-0 Vicryl suture and then the bowel was replaced in the abdominal cavity and the abdominal cavity was then closed in layers vertically with a running #1 PDS for the posterior rectus sheath and then after irrigation running #1 PDS for the anterior rectus sheath and the subcutaneous tissue was irrigated thoroughly with saline solution and the skin was closed with running 3-0 Vicryl subcuticular suture and a dressing was applied. Sponge, needle and instrument counts were reported as correct. The estimated blood loss was minimal. The patient tolerated the procedure well and left the operating room in good condition. MD MICHELLE Sharma/GARCIA /4:51 PM /10:43 AM
[2017-05-10 11:00] VITALS: BP 166/79; PULSE 80; RESP 16; TEMP 98; O2SAT 94
--- NOTE | 2017-05-10 11:01 | HHI.PR ---
Subjective Remarks C/R Surg POD #2 afebrile, VSS lianet PO no BM Objective - Vital Signs Date Time Temp Pulse Resp B/P (MAP) Pulse Ox O2 Delivery O2 Flow Rate FiO2 05/10/17 03:30 93 Room Air 05/10/17 03:00 97.7 79 16 159/74 (102) 05/09/17 21:10 21 05/09/17 11:22 2.00 Result Diagram: 05/10/17 0418 05/10/17 0418 Objective Remarks PE alert Abd - soft, wound dry, min tympany A/P Assessment and Plan Imp: stable OOB adv diet poss dc home Omar Lockhart MD May 10, 2017 11:01
[2017-05-10] MEDS: ACETAMINOPHEN/HYDROcodone 325 MG/5 MG TAB PO PRN (12:20)
[2017-05-10 15:00] VITALS: BP 145/76; PULSE 75; RESP 16; TEMP 98.2; O2SAT 97
== END 2017-05-10 15:47 | disposition home or self-care (01) | DRG 331 ==
LOC: HSDI 12:33 → HCPC 18:49
PROVIDERS: ADMIT Colon & Rectal Surgery; ATTEND Colon & Rectal Surgery
PROC: 0DBB0ZZ Excision of Ileum, Open Approach (ICD-10-PCS; principal; 2017-05-08 15:15)
DX: Z43.2 Encounter for attention to ileostomy (principal); E03.9 Hypothyroidism, unspecified; E78.5 Hyperlipidemia, unspecified; G47.30 Sleep apnea, unspecified; Z79.82 Long term (current) use of aspirin
CPT/HCPCS: 80048; 85025; 86850; 86900; 86901; 88304; 88307; 94150; C9113; J0360; J0690; J1100; J1200; J2250; J2270; J2370; J2405; J2710; J2765; J3010; J3480; J7042; J7120

== ENCOUNTER → 2017-07-16 | Outpatient (CLI) | payer MEDICARE ==
[~2017-07-16] MED LIST changes: -DEXAMETHASONE SOD PHOS 4 MG/ML VIAL IV ONE; -GLYCOPYRROLATE 1 MG/5 ML SYRINGE IV PUSH ONE; +HYDR-3516 PO; -LABETALOL HCL 100 MG/20 ML VIAL IV ONE; -LACTATED RINGER'S 1000 ML INJ 1,000 ML IV ONE; -LIDOCAINE HCL 1% PF 5 ML SYRINGE OTHER ONE; -NEOSTIGMINE 5 MG/5 ML SYRINGE IV PUSH ONE; -ONDANSETRON HCL 4 MG/2 ML VIAL IV ONE; -PHENYLEPH/NS 1000 MCG/10 ML SYR IV ONE; -PROPOFOL 200 MG/20 ML AMP IV ONE; -ROCURONIUM INJ 50 MG/5 ML SYRINGE IV PUSH ONE; -hydrALAZINE HCL 20 MG/ML VIAL IV ONE
--- NOTE | 2017-07-16 15:37 | RADRPT ---
EXAM DATE/TIME: 07/16/2017 12:18 [place] COMPARISON: No previous studies available for comparison. INDICATIONS : Tremors with abnormal gait for two months. DOSE: 5.1 mCi Ioflupane Iodine-123 in 2.5 ml total volume MEDICATION(S): 130 mg Potasium Iodine PO one hour prior to injection SPECT IMAGIN.5 hours. IMAGING: SPECT/CT imaging with fusion was performed. RADIATION DOSE: 30.27 CTDIvol (mGy) MEDICAL HISTORY : Parkinson's. SURGICAL HISTORY : None. ENCOUNTER: Initial ACUITY: 2 months PAIN SCALE: 0/10 LOCATION: cranial TECHNIQUE: SPECT imaging of the brain was performed in sagittal, axial and coronal planes. Attenu ation correction was performed with computed tomography and both the attenuation correction and non-a ttenuation corrected data sets were reviewed. FINDINGS: Probably normal normal biodistribution of radionuclide with mild asymmetry of the crescent-shaped are as of activity are in the striatum which appears distinct relative to the surrounding brain tissue. This is slightly truncated on the left. CONCLUSION: Probably normal dopamine biodistribution. Guanako Piña MD FACR on July 16, 2017 at 15:34 Board Certified Radiologist. This report was verified electronically.
== END ==
LOC: HRAD 07:57
PROVIDERS: ATTEND Specialist
DX: R25.1 Tremor, unspecified (principal)
CPT/HCPCS: 78607; A9584

== ENCOUNTER 2018-04-09 11:19 | Observation (INO) ==
[2018-04-09] MEDS ORDERED: Chlorhexidine Gluconate 2% 1 Pack (2 Cloths) TOPICAL ONE (12:30)
[2018-04-09] MEDS ORDERED: Metoprolol Tartrate 25 MG Tablet PO ONE (12:30)
[2018-04-09] MEDS ORDERED: Sodium Chlor 0.9% Inj 500 ML IV.CONT ONE (12:30)
[2018-04-09] MEDS ORDERED: ceFAZolin 1 GM Premix Inj 2 GM/100 ML PIGGYBACK IV.SIG ONE (13:44)
[2018-04-09] MEDS ORDERED: Potassium Chlor 40 mEq Premix 40 MEQ/100 ML PIGGYBACK IV.SIG PRN (15:27)
[2018-04-09] MEDS ORDERED: Potassium Chlor 20 mEq Premix 20 MEQ/100 ML PIGGYBACK IV.SIG PRN (15:27)
[2018-04-09] MEDS ORDERED: Zolpidem Tartrate 5 MG Tablet PO PRN (15:29)
[2018-04-09] MEDS ORDERED: Naloxone Inj 0.4 MG/ML Vial ONE (15:31)
[2018-04-09] MEDS ORDERED: Sugammadex Inj 200 MG/2 ML Vial IV.PUSH ONE (15:37)
[2018-04-09] MEDS ORDERED: fentaNYL Citrate Inj 100 MCG/2 ML Ampul ONE (15:52)
[2018-04-09] MEDS: KCL 20 mEq/D5W/LR Inj 1,000 ML IV.CONT SCH (16:10)
[2018-04-09] MEDS ORDERED: *morphine SULFATE 4 MG/ML PERIprocedure ONLY ONE (16:11)
[2018-04-09 16:17] LABS: Baso % (Auto) 0.4 % (0.0-2.0); Eos # (Auto) 0.1 th/mm3 (0.0-0.4); Eos % (Auto) 1.1 % (0.0-4.0); Hematocrit 42.8 % (39.0-51.0); Hemoglobin 14.6 gm/dL (13.0-17.0); Lymph # (Auto) 0.8 th/mm3 (1.0-4.8); Lymph % (Auto) 10.7 % (9.0-44.0); Mean Corpuscular HGB Conc 34.1 % (32.0-36.0); Mean Corpuscular Hemoglobin 31.7 pg (27.0-34.0); Mean Corpuscular Volume 92.9 fL (80.0-100.0); Mean Platelet Volume 7.3 fL (7.0-11.0); Mono # (Auto) 0.3 th/mm3 (0.0-0.9); Mono % (Auto) 3.3 % (0.0-8.0); Neut # (Auto) 6.4 th/mm3 (1.8-7.7); Neut % (Auto) 84.5 % (16.0-70.0); Platelet Count 213 th/mm3 (150-450); Red Cell Distribution Width 13.7 % (11.6-17.2); White Blood Count 7.6 th/mm3 (4.0-11.0)
[2018-04-09 16:49] LABS: Carbon Dioxide 29.4 meq/L (21.0-32.0)
[2018-04-09] MEDS: Ketorolac Inj 30 MG/ML (IVP) Vial IV.PUSH PRN (17:32)
[2018-04-09] MEDS: ceFAZolin 2 GM Premix Inj 2 GM/50 ML PIGGYBACK IV.SIG SCH (17:39)
[2018-04-09] MEDS: Mirtazapine 15 MG Tablet PO SCH (20:37)
--- NOTE | 2018-04-09 21:16 | MP ---
cc: Darryl Prieto MD DATE OF OPERATION: 04/09/2018 PREOPERATIVE DIAGNOSIS: Ventral abdominal hernia. POSTOPERATIVE DIAGNOSIS: Ventral abdominal hernia. PROCEDURE PERFORMED: Repair of ventral abdominal hernia with mesh. ANESTHESIA: General endotracheal. SURGEON: Darryl Prieto MD [employer] BUSINESS DEVELOPMENT OFFICER: Musa Simms MD ESTIMATED BLOOD LOSS: 25 mL. OPERATIVE FINDINGS: This patient had a semi-emergent colectomy just over a year ago for a diverticular abscess that was drained by CT guidance and developed a colocutaneous fistula. Postoperatively, the patient developed a subcutaneous wound infection and then subsequently developed a right-sided ventral abdominal hernia. The hernia was repaired primarily today and then an overlay of polypropylene mesh was sutured into place. OPERATIVE TECHNIQUE: The patient was placed on the table in the supine position. After adequate general endotracheal anesthesia, the abdomen was prepped and draped in the usual manner. A transverse infraumbilical skin incision was made on the right side of the abdomen where the hernia was located and taken down through the subcutaneous tissue and then the hernia sac was entered. Once the hernia sac was entered, the abdominal cavity was entered and the bowel was found to be free of the abdominal wall. Next, our attention was turned to the anterior and posterior sheaths of the rectus muscle and the lateral transversus internal oblique and external oblique muscles. The fascial layers were mobilized from the subcutaneous tissue, primarily superiorly but also inferiorly as well down to the iliac crest laterally and medially. The umbilicus was disconnected from the fascia medially and superiorly. Once this was done, the fascia was closed in a single layer using a 0 Prolene suture in a simple running manner, closing the entire fascial layer. No relaxing incision was done. Next, polypropylene mesh was cut to size and placed over the closure and then sutured into place in a simple running manner around the periphery of the mesh using 0 Prolene suture as well. Next, once the mesh was sutured into place, the mesh was tacked down in the middle along the fascial closure site with interrupted 0 Prolene sutures and then on the remainder of the surface of the mesh intermittently with 0 Prolene sutures. Once this was done, hemostasis was checked for once again and the wound was irrigated with several liters of saline solution and aspirated dry. The subcutaneous tissue was closed with interrupted 3-0 Vicryl sutures and a drain was placed with its exit medially and the drain placed along the inferior portion of the wound. The skin was closed with interrupted skin terrell and a dressing was applied. Sponge, needle and instrument counts were reported as correct. The estimated blood loss was 25 mL. The patient tolerated the procedure well and left the operating room in good condition. MD MICHELLE Sharma/lizette , 08:36 PM , 08:44 PM
[2018-04-10] MEDS: ceFAZolin 2 GM Premix Inj 2 GM/50 ML PIGGYBACK IV.SIG SCH ×3 (02:31→16:13)
[2018-04-10] MEDS: KCL 20 mEq/D5W/LR Inj 1,000 ML IV.CONT SCH ×2 (02:32→16:16)
[2018-04-10] MEDS: Pantoprazole Inj 40 MG Vial IV.PUSH SCH (08:35)
[2018-04-10] MEDS: RIVASTIGMINE 13.3 MG OTHER SCH (08:36)
[2018-04-10 09:48] LABS: Baso % (Auto) 0.3 % (0.0-2.0); Eos % (Auto) 0.3 % (0.0-4.0); Hemoglobin 14.5 gm/dL (13.0-17.0); Lymph % (Auto) 10.2 % (9.0-44.0); Mean Corpuscular HGB Conc 33.7 % (32.0-36.0); Mean Corpuscular Hemoglobin 31.9 pg (27.0-34.0); Mean Corpuscular Volume 94.7 fL (80.0-100.0); Mean Platelet Volume 7.4 fL (7.0-11.0); Mono # (Auto) 0.5 th/mm3 (0.0-0.9); Mono % (Auto) 5.6 % (0.0-8.0); Neut # (Auto) 7.9 th/mm3 (1.8-7.7); Neut % (Auto) 83.6 % (16.0-70.0); Platelet Count 221 th/mm3 (150-450); Red Blood Count 4.54 mil/mm3 (4.50-5.90); Red Cell Distribution Width 13.7 % (11.6-17.2); White Blood Count 9.5 th/mm3 (4.0-11.0)
[2018-04-10 10:10] LABS: Calcium 8.3 mg/dL (8.5-10.1); Carbon Dioxide 28.4 meq/L (21.0-32.0); Potassium 3.8 meq/L (3.5-5.1)
--- NOTE | 2018-04-10 16:20 | P.PNCS ---
Subjective Colorectal Surgery Post Op Day #: 1 Interval history: Pain but not using pain meds. No N or V. Tolerating PO. Objective Result Diagrams: 04/10/18 09:12 04/10/18 09:12 Objective Remarks: Abd: flat,soft,dressing dry. SQ drain intact Assessment and Plan - Plan Ambulate more Use pain meds Decrease IVs D/C tomorrow.
[2018-04-10] MEDS: Mirtazapine 15 MG Tablet PO SCH (21:54)
[2018-04-10] MEDS: Ketorolac Inj 30 MG/ML (IVP) Vial IV.PUSH PRN (21:55)
[2018-04-11] MEDS: KCL 20 mEq/D5W/LR Inj 1,000 ML IV.CONT SCH (05:46)
[2018-04-11] MEDS: Ketorolac Inj 30 MG/ML (IVP) Vial IV.PUSH PRN (05:46)
[2018-04-11 08:51] LABS: Baso % (Auto) 0.5 % (0.0-2.0); Eos # (Auto) 0.1 th/mm3 (0.0-0.4); Eos % (Auto) 1.2 % (0.0-4.0); Hematocrit 39.5 % (39.0-51.0); Hemoglobin 13.4 gm/dL (13.0-17.0); Lymph # (Auto) 0.9 th/mm3 (1.0-4.8); Lymph % (Auto) 11.3 % (9.0-44.0); Mean Corpuscular HGB Conc 33.9 % (32.0-36.0); Mean Corpuscular Hemoglobin 31.9 pg (27.0-34.0); Mean Platelet Volume 7.9 fL (7.0-11.0); Mono # (Auto) 0.9 th/mm3 (0.0-0.9); Mono % (Auto) 11.1 % (0.0-8.0); Neut # (Auto) 5.8 th/mm3 (1.8-7.7); Neut % (Auto) 75.9 % (16.0-70.0); Platelet Count 189 th/mm3 (150-450); Red Cell Distribution Width 13.8 % (11.6-17.2); White Blood Count 7.7 th/mm3 (4.0-11.0)
[2018-04-11 09:13] LABS: Calcium 7.9 mg/dL (8.5-10.1); Carbon Dioxide 28.1 meq/L (21.0-32.0); Potassium 3.8 meq/L (3.5-5.1)
[2018-04-11] MEDS: Pantoprazole Inj 40 MG Vial IV.PUSH SCH (09:40)
[2018-04-11] MEDS: RIVASTIGMINE 13.3 MG OTHER SCH (09:41)
== END 2018-04-11 12:39 | disposition home or self-care (01) ==
LOC: HSDC 11:19 → HSDI 11:19 → N07 18:04
PROVIDERS: ADMIT Colon & Rectal Surgery; ATTEND Colon & Rectal Surgery
CPT/HCPCS: 80048; 85025; 88302; 94150; 96365; 96366; 96368; 96375; 96376; C1781; C9113; G0378; J0131; J0690; J1885; J2250; J2270; J2310; J2765; J3010; J3480; J7120